=== PATIENT | male | born 1945 | race Caucasian/White ===

== ENCOUNTER → 2016-04-16 | Outpatient (CLI) | payer OTHER ==
[2016-01-01 14:52] VITALS: BP 115/70
[~2016-04-16] MED LIST: AMLO5TAB4 PO; ASPI325T11 PO; CITA10TA8 PO; CITA20TA5 PO; CLOP75TA PO; DOXA2TAB PO; FURO20TA3 PO; GABA-586 PO; HYDR10TA14 PO; INSU100I27 SQ; LEVO100T5 PO; METF500T4 PO; METO50TA2 PO; NPH,100V SQ; NPH,100V4 SQ; POTA20TA12 PO
--- NOTE | 2016-04-16 13:52 | KCIC ---
PROCEDURE Five view lumbar spine series Three view study of the sacroiliac joints HISTORY Acute midline low back pain without sciatica. Status post fall 2 days ago. FINDINGS Lumbar spine: No acute compression fracture or discitis or osteolytic process or anterolisthesis is seen. The transverse processes are intact. There is mild retrolisthesis from L1-2 thru L4-5. There is moderate degenerative disc space narrowing and mild degenerative endplate spurring throughout the lumbar spine and the lumbosacral junction. Degenerative facet arthropathy is seen throughout the lumbar spine. No radiolucent pars defect is seen. Sacroiliac joints: No fracture of the sacrum or coccyx is seen. No displacement is seen. No diastases of either SI joint or the symphysis pubis is seen. No erosive arthropathy or ankylosis of either SI joint is seen. There is mild degenerative subchondral sclerosis and spurring of both SI joints. There is mild degenerative spurring of both hip joints. 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 Mild to moderate degenerative lumbar spondylosis. No acute fracture. Electronically signed by: Chepe Boyle MD (Apr 16, 2016 13:50:13)
== END | disposition home or self-care (01) ==
LOC: KCIC 12:21
PROVIDERS: ATTEND Physician Assistant Medical
DX: M47.896 Other spondylosis, lumbar region (principal); M16.0 Bilateral primary osteoarthritis of hip
CPT/HCPCS: 72110; 72202

== ENCOUNTER → 2016-05-24 | Outpatient (CLI) | payer OTHER ==
[2016-01-01 14:52] VITALS: BP 115/70
[~2016-05-24] MED LIST changes: +HYDR-3074 PO; -HYDR10TA14 PO; +IOHEXOL 300 MG/ML 100ML VIAL. IV ONE
--- NOTE | 2016-05-24 11:52 | KCIC ---
CT head with and without contrast dated 05/24/2016 HISTORY Follow pituitary mass. Tunnel vision. TECHNIQUE Contiguous axial imaging of the head performed with and without the administration of 80 cc Omnipaque 300. Coronal and sagittal reconstructions obtained.Exposure: One or more of the following individualized dose reduction techniques were utilized for this exam: 1. Automated exposure control. 2. Adjustment of the mA and/or kV according to patient size. 3. Use of iterative reconstruction technique. COMPARISON 08/21/2015. FINDINGS Again noted is an enhancing mass filling the pituitary fossa with extension to the suprasellar cistern. The lesion measures 2.0 x 2.4 centimeter AP and transverse dimensions there is 1.9 x 2.3 centimeters previously. There is probable extension into the left cavernous sinus with remodeling of the adjacent bone that may have somewhat progressed from prior study. The lesion protrudes into the suprasellar cistern and appears to abut the optic chiasm, without significant chiasmatic displacement. No additional areas of abnormal enhancement or mass. Ventricles and sulci are stable. No midline shift or mass effect. Brain parenchyma is otherwise of normal attenuation. No hemorrhage or extra-axial collection posterior fossa and brainstem unremarkable. Visualized paranasal sinuses and mastoid air cells are clear. No acute calvarial abnormality. IMPRESSION - Enhancing pituitary mass appears to have slightly increased in size from prior exam, with possible further extension into the left cavernous sinus. There is also abutment of the optic chiasm. - Otherwise stable appearance of brain compared to if 08/20/2014. Electronically signed by: Chandan Dos Santos (May 24, 2016 11:50:16)
== END | disposition home or self-care (01) ==
LOC: KCIC CT 10:35
PROVIDERS: ATTEND Ophthalmology
DX: D35.2 Benign neoplasm of pituitary gland (principal); Z79.01 Long term (current) use of anticoagulants; I10 Essential (primary) hypertension; E11.9 Type 2 diabetes mellitus without complications; Z86.79 Personal history of other diseases of the circulatory system; Z95.0 Presence of cardiac pacemaker; Z95.5 Presence of coronary angioplasty implant and graft
CPT/HCPCS: 70470; 82565; Q9967

== ENCOUNTER 2016-10-29 10:35 | Inpatient (IN) | payer OTHER ==
[~2016-10-29] VITALS: Ht 170.2 cm; Wt 115.8 kg
[~2016-10-29 10:35] MED LIST changes: +AMLO5TAB2 PO; +ATOR10TA60 PO; +BUPR300T3 PO; +FURO40TA4 PO; -IOHEXOL 300 MG/ML 100ML VIAL. IV ONE; +LEVO150T5 PO; +MULT-208 PO; -NPH,100V4 SQ; +NPH,100V5 SQ; +POTA20TA4 PO; +VITA150T PO
--- NOTE | 2016-10-29 10:38 | PHYS DOC ---
Past Medical History Past Medical History: CAD, CHF, Diabetes-Type II, Hypertension, NV, Other Additional Past Medical Histor: PITUITARY TUMOR,NEUROPATHY, BRENDA'S Past Surgical History: Appendectomy, Coronary Bypass Surgery, Pacemaker Additional Past Surgical Histo: LEFT LEG STENTS IN PLACE, LAP BAND, PITUARY TUMOR REMOVED Alcohol Use: None Drug Use: None Adult General Chief Complaint Chief Complaint: CHEST PAIN [facility] HPI Patient is a 71 year old male who presents with chest pain with nausea. He states last night he had a couple twinges in his chest but they went away he was unable to eat his inner last night secondary to abdominal discomfort. This morning at 7 AM he was awoke with sharp substernal chest pain that was not radiating he felt nauseous with this and he became hot and then cold. He states his same pain he's had wheeze had heart attacks in the past. Currently his pain is a 2 out of 10. He did take nitroglycerin prior to arrival. He states he sees Dr. Wu and Dr. Neema Zazueta. He states he called Dr. Zazueta and informed him he was in the ER. Review of Systems Review of Systems Constitutional: Denies fever or chills [] Eyes: Denies change in visual acuity, redness, or eye pain [] HENT: Denies nasal congestion or sore throat [] Respiratory: Denies cough or shortness of breath [] Cardiovascular: No additional information not addressed in HPI [] GI: Denies abdominal pain, nausea, vomiting, bloody stools or diarrhea [] : Denies dysuria or hematuria [] Musculoskeletal: Denies back pain or joint pain [] Integument: Denies rash or skin lesions [] Neurologic: Denies headache, focal weakness or sensory changes [] Endocrine: Denies polyuria or polydipsia [] Current Medications Current Medications Current Medications Medications (Trade) Dose Ordered Sig/[facility] Start Time Stop Time Status Last Admin Dose Admin Aspirin (Children'S Aspirin) 324 mg 1X ONCE 10/29/16 10:45 10/29/16 10:46 DC 10/29/16 11:02 324 MG Enoxaparin Sodium (Lovenox 120mg Syringe) 110 mg Q12HR 10/29/16 12:00 Enoxaparin Sodium (Lovenox Per Pharmacy Treatment Dosing) 1 each PRN DAILY PRN 10/29/16 12:00 Nitroglycerin (Nitrostat) 0.4 mg PRN Q5MIN PRN 10/29/16 10:45 10/30/16 10:44 Allergies Allergies Allergies Coded Allergies Type Severity Reaction Last Updated Verified Sulfa (Sulfonamide Antibiotics) Allergy Intermediate N/V, RASH 10/29/16 Yes I S O L A T I O N *CONTACT* Allergy Unknown 08/12/15 Yes Physical Exam Physical Exam Constitutional: Well developed, well nourished, no acute distress, non-toxic appearance. [] HENT: Normocephalic, atraumatic, bilateral external ears normal, oropharynx moist, no oral exudates, nose normal. [] Eyes: PERRLA, EOMI, conjunctiva normal, no discharge. [] Neck: Normal range of motion, no tenderness, supple, no stridor. [] Cardiovascular:Heart rate regular rhythm, no murmur [] Lungs & Thorax: Bilateral breath sounds clear to auscultation [] Abdomen: Bowel sounds normal, soft, no tenderness, no masses, no pulsatile masses. [] Skin: Warm, dry, no erythema, no rash. [] Back: No tenderness, no CVA tenderness. [] Extremities: No tenderness, no cyanosis, no clubbing, ROM intact, no edema. [] Neurologic: Alert and oriented X 3, normal motor function, normal sensory function, no focal deficits noted. [] Psychologic: Affect normal, judgement normal, mood normal. [] Current Patient Data Vital Signs Vital Signs Date Time Temp Pulse Resp B/P (MAP) Pulse Ox O2 Delivery O2 Flow Rate FiO2 10/29/16 10:40 98.0 73 18 131/67 (88) 97 Room Air 98.0 Lab Values Laboratory Tests Test 10/29/16 10:50 White Blood Count 8.5 x10^3/uL (4.0-11.0) Red Blood Count 5.92 x10^6/uL (4.30-5.70) H Hemoglobin 15.6 g/dL (13.0-17.5) Hematocrit 47.2 % (39.0-53.0) Mean Corpuscular Volume 80 fL (79-100) Mean Corpuscular Hemoglobin 26 pg (25-35) Mean Corpuscular Hemoglobin Concent 33 g/dL (31-37) Red Cell Distribution Width 15.7 % (11.5-14.5) H Platelet Count 229 x10^3/uL (140-400) Neutrophils (%) (Auto) 69 % (31-73) Lymphocytes (%) (Auto) 16 % (24-48) L Monocytes (%) (Auto) 11 % (0-9) H Eosinophils (%) (Auto) 3 % (0-3) Basophils (%) (Auto) 1 % (0-3) Neutrophils # (Auto) 5.9 x10^3uL (1.8-7.7) Lymphocytes # (Auto) 1.4 x10^3/uL (1.0-4.8) Monocytes # (Auto) 0.9 x10^3/uL (0.0-1.1) Eosinophils # (Auto) 0.3 x10^3/uL (0.0-0.7) Basophils # (Auto) 0.1 x10^3/uL (0.0-0.2) Sodium Level 136 mmol/L (136-145) Potassium Level 4.3 mmol/L (3.5-5.1) Chloride Level 100 mmol/L (98-107) Carbon Dioxide Level 29 mmol/L (21-32) Anion Gap 7 (6-14) Blood Urea Nitrogen 22 mg/dL (8-26) Creatinine 1.2 mg/dL (0.7-1.3) Estimated GFR (Cockcroft-Gault) 59.9 Glucose Level 146 mg/dL (70-99) H Calcium Level 8.9 mg/dL (8.5-10.1) Magnesium Level 2.0 mg/dL (1.8-2.4) Total Bilirubin 0.6 mg/dL (0.2-1.0) Direct Bilirubin 0.1 mg/dL (0.0-0.2) Aspartate Amino Transferase (AST) 24 U/L (15-37) Alanine Aminotransferase (ALT) 24 U/L (16-63) Alkaline Phosphatase 46 U/L (46-116) Creatine Kinase 167 U/L (39-308) Creatine Kinase MB (Mass) 9.0 ng/mL (0.0-3.6) H Creatine Kinase MB Relative Index 5.4 % (0-4) H Troponin I Quantitative 0.029 ng/mL (0.000-0.055) IN-Mzm-Y-Type Natriuretic Peptide 103 pg/mL (0-124) Total Protein 7.4 g/dL (6.4-8.2) Albumin 3.5 g/dL (3.4-5.0) Lipase 163 U/L (73-393) Thyroid Stimulating Hormone (TSH) 0.050 uIU/mL (0.358-3.74) L Laboratory Tests 10/29/16 10:50 Laboratory Tests 10/29/16 10:50 EKG EKG EKG shows sinus rhythm with rate of [address] elevations, T-wave inversion noted in leads aVL, left axis deviation noted, QTC 404 ms, as interpreted by me. Radiology/Procedures Radiology/Procedures [facility] [address] [place] [address] IMAGING REPORT Signed PATIENT: LINDA DAVID ACCOUNT: [id number] : 1945 LOCATION: ER AGE: 71 SEX: M EXAM STATUS: PRE ER ORD. PHYSICIAN: NATHANIEL RAM MD REASON: chest pain PROCEDURE: PORTABLE CHEST 1V Examination: Single frontal view of the chest. History: History of intermittent chest pain Comparison: 09/15/2016 Findings: The cardiomediastinal size grossly appears unremarkable. Left-sided cardiac pacer is unchanged. Median sternotomy wires are identified. There is no acute infiltrate or visualized pneumothorax. Minimal elevation right hemidiaphragm similar to prior exam. Impression: No acute cardiopulmonary findings. DICTATED and SIGNED BY: MILY CARMONA MD DATE: 10/29/16 1102 CC: NATHANIEL RAM MD; NEEMA ZAZUETA MD ~ Impressions: Chest pain Course & Med Decision Making Course & Med Decision Making Pertinent Labs and Imaging studies reviewed. (See chart for details) EKG, chest x-ray nonacute. Spoke with Dr. Wu regarding his ongoing chest discomfort in addition to labs and will start Lovenox. Patient's agreeable plan being admitted to Dr. Neema Zazueta this time with interim orders written. Dragon Disclaimer Dragon Disclaimer This electronic medical record was generated, in whole or in part, using a voice recognition dictation system. Departure Departure Impression: Primary Impression: Chest pain Disposition: ADMITTED INPATIENT Admitting Physician: Neema Zazueta Condition: STABLE Referrals: NEEMA ZAZUETA MD (PCP) Problem Qualifiers Primary Impression: Chest pain Chest pain type: unspecified Qualified Codes: R07.9 - Chest pain, unspecified NATHANIEL RAM MD Oct 29, 2016 10:38
[2016-10-29] MEDS ORDERED: ASPIRIN CHEWABLE 81 MG TABLET. PO ONE (10:45)
[2016-10-29] MEDS ORDERED: NITROGLYCERIN SUBLINGUAL 0.4 MG BOTTLE OF 25. SL PRN ×2 (10:45→12:30)
--- NOTE | 2016-10-29 11:06 | RAD ---
Examination: Single frontal view of the chest. History: History of intermittent chest pain Comparison: 09/15/2016 Findings: The cardiomediastinal size grossly appears unremarkable. Left-sided cardiac pacer is unchanged. Median sternotomy wires are identified. There is no acute infiltrate or visualized pneumothorax. Minimal elevation right hemidiaphragm similar to prior exam. Impression: No acute cardiopulmonary findings.
[2016-10-29 11:16] LABS: CALCIUM 8.9 mg/dL (8.5-10.1); CREATININE 1.2 mg/dL (0.7-1.3); GFR 59.9; POTASSIUM 4.3 mmol/L (3.5-5.1)
[2016-10-29 11:22] LABS: ALBUMIN 3.5 g/dL (3.4-5.0); DIRECT BILIRUBIN 0.1 mg/dL (0.0-0.2); TOTAL BILIRUBIN 0.6 mg/dL (0.2-1.0); TOTAL PROTEIN 7.4 g/dL (6.4-8.2)
[2016-10-29 11:29] LABS: BASO # 0.1 x10^3/uL (0.0-0.2); BASO % 1 % (0-3); EOS % 3 % (0-3); HEMATOCRIT 47.2 % (39.0-53.0); HEMOGLOBIN 15.6 g/dL (13.0-17.5); LYMPH # 1.4 x10^3/uL (1.0-4.8); LYMPH % 16 % (24-48); MEAN CORPUSCULAR HEMOGLOBIN 26 pg (25-35); MEAN CORPUSCULAR HGB CONC 33 g/dL (31-37); MEAN CORPUSCULAR VOLUME 80 fL (79-100); MONO % 11 % (0-9); NEUT % 69 % (31-73); PLATELET COUNT 229 x10^3/uL (140-400); RED BLOOD COUNT 5.92 x10^6/uL (4.30-5.70); RED CELL DISTRIBUTION WIDTH 15.7 % (11.5-14.5); WHITE BLOOD COUNT 8.5 x10^3/uL (4.0-11.0)
[2016-10-29] MEDS ORDERED: MORPHINE SULFATE 2 MG/ML DISP.SYRIN. IV PRN (12:30)
[2016-10-29] MEDS ORDERED: ONDANSETRON PF 4 MG/2 ML VIAL. IV PRN (12:30)
[2016-10-29 13:15] VITALS: BP 113/74
--- NOTE | 2016-10-29 14:00 | ACF ---
Admit Criteria Forms Admit Criteria Forms Admit Criteria Forms CARDIOLOGY GRG Clinical Indications for Admission to Inpatient Care ( [place]/check or initial the applicable condition/criteria) Hospital admission is needed for appropriate care of the patient because of ANY ONE of the following: [ ] I. Hemodynamic instability as indicated by ALL of the following (1)(2)(3) (4)(5)(6)(7)(8)(9)(10) [ ]a) Vital sign abnormality not readily corrected by appropriate treatment with 12-24 hours for ANY ONE: [ ]i) Hypotension that persists despite appropriate treatment (eg, volume repletion) [ ]ii) Tachycardiathat persists despite appropriate tx ( e.g., analgesia, fluids, sedation as indicated [ ]iii) Orthostatic vital sign changes that persists despite appropriate treatment (eg, volume repletion) [ ]b) Vital sign abnormailty that is severe indicated by ANY ONE of the following: [ ]i) Inadequate perfusion indicated by ANY ONE of the following: [ ] 1) Lactic acidosis (> 2 mmol/L) [ ] 2) New abnormal capillary refill (> 3 seconds) [ ] 3) Reduced urine output [ ] 4) New altered mental status [ ] 5) Myocardial Ischemia [ ] 6) Other metabolic acidosis (arterial pH <7.35 ) not otherwise explained. [ ]ii) Mean arterial pressure[A] less than 60 mm Hg [ ]iii) Mean arterial pressure[A] less than 70 mm Hg after 30 minutes of appropriate treatment (eg, fluid resuscitation) [ ]iv) Sustained heart rate greater than 120 beats per minute in adult or child 6 years or older[B] [ ]v) IV inotropic or vasopressor medication required to maintain adequate blood pressure or perfusion [ ] II. Severe heart failure as indicated by ANY ONE of the following(17)(18) [ ]a) Respiratory distress [ ]b) Hypotension [ ]c) Debilitating anasarca refractory to therapy (eg, tissue breakdown with infection)[C](19) [ ]d) Cardiac arrhythmias of immediate concern [ ]e) Myocardial ischemia [ ] III. Cardiac arrhythmias or findings of immediate concern indicated by ANY ONE of the following (21)(22): [ ] a) Heart rhythms that are inherently dangerous or unstable indicated by ANY ONE of the following (23)(24)(25): [ ] i) Resuscitated ventricular fibrillation or cardiac arrest [ ] ii) Ventricular escape rhythm [ ] iii) Sustained ventricular tachycardia (30 seconds or more of ventricular rhythm at greater than 100 beats per minute) [ ] iv) Nonsustained ventricular tachycardia and ANY ONE of the following: [ ] 1) Suspected cardiac ischemia as cause or consequence of ventricular tachycardia [ ] 2) Acute myocarditis [ ] b) Unstable cardiac conduction defects indicated by ANY ONE of the following(25)(26)(27) [ ] i) Type II second-degree atrioventricular block [ ]ii) Third-degree atrioventricular block [ ]iii) New-onset left bundle branch block with suspected myocardial ischemia [ ]c) Any heart rhythm and ANY ONE of the following (23)(24)(28)(29) (30) [ ] i) Continuous long-term ECG monitoring needed (e.g., initiation of drug requiring monitoring for more than 24 hours) [ ] ii) Patient has automatic implanted cardioverter defibrillator that is repeatedly firing, malfunctioning, or in need of immediate adjustment of settings beyond the scope of ambulatory or observation care [ ]d) Heart rhythms of concern due to ANY ONE of the following: [ ] i) Hypotension [ ] ii) Respiratory distress [ ] iii) Association with other significant symptoms (e.g., bradycardia with syncope or ongoing dizziness, supraventricular tachycardia with chest pain (28)(29)(31) [ ] IV. Monitoring for cardiac contusion beyond the scope of observation care needed [A](32)(33)(34) [ ] V. Surgical or device complication (e.g., valve replacement complication , ICD disfunction or pacemaker dysfunction) (49)(50)(51)(52)(53)(54) [ ] . Inpatient palliative care needed. [F](51)(52) Also use Inpatient Palliative Care Criteria [ ] VII. Nonbacterial thrombotic (marantic) endocarditis(43)(44)(55)(56)(57) [X] VIII. Cardiology condition, symptom, or finding for which emergency and observation care has failed or are not considered appropriate. [ ] IX. Acute valvular disease requiring inpatient as indicated by ANY ONE of the following (40)(41) [ ]a) Acute valvular regurgitation (42) [ ]b) Noninfectious valvulitis (43)(44) [ ]c) Obstructive valve thrombosis (45)(46) [ ]d) Paravalvular leak(47)(48) [ ]e) Other significant valvular disorder remaining after emergency or observation level of care (as appropriate) [ ]X. Pericardial disease requiring inpatient treatment as indicated by ANY ONE of the following (35)(36)(37)(38) [ ]a) Suspected tamponade [ ]b) Hemopericardium [ ]c) Other significant pericardial disorder remaining after emergency or observation level of care (as appropriate)(39) [ ] XI. Cardiac ischemia beyond scope of emergency and observation care. [ ] XII. Cyanotic heart disease requiring inpatient care as indicated by 1 or more of the following(58)(59)(60): [ ]a) Acute onset of hypoxemia [ ]b) Exacerbation [ ] XIII. Hypertension requiring inpatient treatment as indicated by ANYONE of the following(11)(12)(13)(14): [ ]a) Severe hypertension (SBP greater than 180 mm Hg or DBP greater than 110 mm Hg, or greater than the 95th percentile for age, gender, and height in pediatric patients) that cannot be controlled (eg, to SBP less than 160 mm Hg and DBP less than 100 mm Hg) by emergency department or observation care treatment(15) [ ]b) Acute end organ damage secondary to hypertension (SBP greater than 140 mm Hg or DBP greater than 90 mm Hg) as indicated by ANYONE of the following: [ ] i) Hypertensive encephalopathy (eg, Altered mental status)(16) [ ] ii) Cerebral infarction [ ] iii) Intracranial hemorrhage [ ] iv) Myocardial ischemia or infarction [ ] v) Heart failure (eg, pulmonary edema) [ ] vi) Aortic dissection [ ] vii) Increased creatinine (new) with reduction of more than 50% in estimated glomerular filtration rate from baseline [ ] viii) Papilledema [ ] ix) Retinal hemorrhage [ ] x) Microangiopathic hemolytic anemia [ ] xi) Seizure [ ] xii) Other significant finding secondary to hypertension [ ] XIV. Complications of transplanted heart indicated by ANY ONE of the following(61): [ ]a) Acute graft rejection requiring inpatient management (eg, intravenous imunosuppression)(62)(63) [ ]b) Acute graft heart failure indicated by ANY ONE of the following(64): [ ] i) Hemodynamic instability [ ] ii) Cardiac arrhythmias of immediate concern [ ] iii) Pulmonary edema that is very severe (eg, mechanical ventilation needed, imminent or likely, need for 100% oxygen to keep oxygen saturation above 90%) [ ] iv) Pulmonary edema that is persistent as indicated by ALL of the following: [ ] 1) New need for oxygen therapy to keep oxygen saturation above 90 % (or increased FiO2 need from baseline) [ ] 2) Has not improved sufficiently with emergency department or observation care IV diuretics or other heart failure treatments[E]. [ ] iv) Altered mental status that is severe or persistent [ ] iv) Increased creatinine (new on laboratory test) with reduction of more than 50% in estimated glomerular filtration rate from baseline [ ] iv) Progressively (ongoing) rising creatinine (known from past laboratory test) with reduction of more than 25% in estimated glomerular filtration rate from baseline [ ] iv) Acute renal failure [ ] iv) Acute peripheral ischemia (eg, examination shows pulseless, cool, mottled, or cyanotic extremity) [ ] iv) Pulmonary artery catheter monitoring needed [ ] iv) Other sign or symptom of heart failure requiring inpatient treatment (ie, too severe or not responsive to outpatient and observation care treatment) [ ]c) Infection requiring inpatient management (eg, Hemodynamic instability, need for intravenous antimicrobial treatment)(66)(67)(68)(69)(70) [ ]d) Cardiac allograft vasculopathy requiring inpatient management (eg evidence of cardiacischemia)(71) [ ]e) Other complication of transplanted heart (eg, stroke, severe pulmonary hypertension, severe valvular dysfunction) requiring inpatient management(72) The original [employer] content created by [employer] has been revised. The portions of the content which have been revised are identified through the use of italic text, and [facility] [employer] has neither reviewed nor approved the modified material. All other unmodified content is copyright [employer]. Please see references footnoted in the original [employer] edition 2014 MANA ELLISON Oct 29, 2016 14:00
[2016-10-29] MEDS ORDERED: ASPI325T8 PO (14:04)
[2016-10-29] MEDS ORDERED: CLOP75TA PO (14:04)
[2016-10-29] MEDS ORDERED: METO50TA2 PO (14:04)
[2016-10-29] MEDS ORDERED: ATOR10TA60 PO (14:04)
[2016-10-29] MEDS ORDERED: POTA20TA82 PO (14:04)
[2016-10-29] MEDS ORDERED: ACET500C4 PO (14:04)
[2016-10-29] MEDS ORDERED: VITA150T PO (14:04)
[2016-10-29] MEDS ORDERED: FURO-68 PO (14:04)
[2016-10-29] MEDS ORDERED: OMEG1CAP28 PO (14:04)
[2016-10-29] MEDS ORDERED: AMLO5TAB2 PO (14:04)
[2016-10-29] MEDS ORDERED: COCO1000 PO (14:04)
[2016-10-29] MEDS ORDERED: LEVO150T5 PO (14:04)
[2016-10-29] MEDS ORDERED: ASTA4CAP PO (14:04)
[2016-10-29] MEDS ORDERED: FOLI200T11 PO (14:04)
[2016-10-29] MEDS ORDERED: BUPR100T11 PO (14:04)
[2016-10-29] MEDS ORDERED: HUM100VI4 SQ (14:04)
[2016-10-29] MEDS ORDERED: CHOL200044 PO (14:04)
[2016-10-29] MEDS ORDERED: UBID100C26 PO (14:04)
[2016-10-29] MEDS ORDERED: [UNRECOGNIZED DRUG - CODE] PO (14:04)
--- NOTE | 2016-10-29 14:11 | EKG ---
[facility] [address] [place] [address] Test Date: 2016-10-29 Test Time: 10:44:35 Pat Name: LINDA DAVID Department: Room: 263 1 Gender: M Spread Cutter: : 1945 Requested By: NATHANIEL RAM Order Number: [id number] Reading MD: Mateus Conde Measurements Intervals [place] Rate: 62 P: 24 TX: 196 QRS: -5 QRSD: 108 T: 94 QT: 396 QTc: 404 Interpretive Statements SINUS RHYTHM Electronically Signed On 11-01-2016 11:20:29 CDT by Mateus Conde
[2016-10-29] MEDS ORDERED: DEXTROSE 50% 25 GM / 50ML DISP.SYRIN. IV PRN (14:30)
[2016-10-29 15:00] VITALS: BP 116/74
--- NOTE | 2016-10-29 16:16 | PDOC2 ---
CONSULT Date of Consult Date of Consult DATE: 10/29/16 TIME: 16:06 Reason for Consult Reason for Consult: Chest Pain Referring Physician Referring Physician: Dr Driscoll Identification/Chief Complaint Chief Complaint Chest Pain Problems: History of Present Illness Reason for Visit: Pt is a pleasant 71 y o gentleman that has a known Hx of CAD and previous MS's. He had an episode of R parasternal chest pain yesterday that was relieved spontaneously and then he went to sleep and the pain woke him up, it was partially relieved by NTG for a while and then he eventually decided to come to the ER because it was similar to the pains that he had with his MS's. After arrival in the ER the enzymes were normal and there was no acute changes in the EKG as reported by the ER physician. At the time that I examined the pt he denies any chest pains and feels fine, no dyspnea, no palpitations, no complaints. Past Medical History Cardiovascular: CAD, HTN, [place] Pulmonary: COPD, Other CENTRAL NERVOUS SYSTEM: Other Psych: Anxiety, Depression Musculoskeletal: Osteoarthritis Rheumatologic: Gout Endocrine: Diabetes, Hypothyroidism Past Surgical History Past Surgical History: Pacemaker, Appendectomy, CABG, Other Current Problem List Problem List Problems Medical Problems: (1) Chest pain Status: Acute Current Medications Current Medications Current Medications Aspirin (Children'S Aspirin) 324 mg 1X ONCE PO Last administered on 10/29/16 11:02; Start 10/29/16 at 10:45; Stop 10/29/16 at 10:46; Status DC Nitroglycerin (Nitrostat) 0.4 mg PRN Q5MIN PRN SL CP RATING > 1/10; Start 10/29 at 10:45; Stop 10/30/16 at 10:44 Enoxaparin Sodium (Lovenox Per Pharmacy Treatment Dosing) 1 each PRN DAILY PRN MC SEE COMMENTS; Start 10/29/16 at 12:00 Enoxaparin Sodium (Lovenox 120mg Syringe) 110 mg Q12HR SQ Last administered on 10/29/16 12:36; Start 10/29/16 at 12:00 Ondansetron HCl (Zofran) 4 mg PRN Q8HRS PRN IV NAUSEA/VOMITING; Start 10/29/16 at 12:30; Stop 10/30/16 at 12:29 Morphine Sulfate 2 mg PRN Q2HR PRN IV PAIN; Start 10/29/16 at 12:30; Stop 10/30 at 12:29 Nitroglycerin (Nitrostat) 0.4 mg PRN Q5MIN PRN SL CHEST PAIN; Start 10/29/16 at 12:30; Stop 10/30/16 at 12:29 Dextrose (Dextrose 50%-Water Syringe) 12.5 gm PRN Q15MIN PRN IV SEE COMMENTS; Start 10/29/16 at 14:30 Active Scripts Active Reported Msm (Methylsulfonylmethane) 1,000 Mg Capsule 1,000 Mg PO DAILY Coconut Oil 1,000 Mg Capsule 1,000 Mg PO DAILY D3-2000 (Cholecalciferol (Vitamin D3)) 2,000 Unit Capsule 2,000 Unit PO DAILY Coq-10 (Ubidecarenone) 100 Mg Capsule 100 Mg PO DAILY Super B Complex (Vitamin B Complex & Vit C No.4) 150 Mg Tablet 150 Mg PO DAILY Adult Multivitamin Gummies (Folic Acid/Multivits-Min) 200 Mcg Tab.chew 200 Mcg PO DAILY Fish Oil 1,200 Mg Softgel ([place]-3 Fatty Acids/Fish Oil) 1 Each Capsule 1 Each PO DAILY Aspirin 325 Mg Tablet 1 Tab PO DAILY Clopidogrel (Clopidogrel Bisulfate) 75 Mg Tablet 1 Tab PO DAILY Bupropion Hcl 100 Mg Tablet 300 Mg PO DAILY Atorvastatin Calcium 10 Mg Tablet 1 Tab PO DAILY Lasix (Furosemide) 40 Mg Tablet 1 Tab PO DAILY Potassium Chloride 20 Meq Tablet.er 20 Meq PO BID Metoprolol Tartrate 50 Mg Tablet 1 Tab PO BID Amlodipine Besylate 5 Mg Tablet 5 Mg PO DAILY Levothyroxine Sodium 150 Mcg Tablet 1 Tab PO DAILY Relion Novolin 70-30 Vial (Hum Insulin Nph/Reg Insulin Hm) 100 Unit/1 Ml Vial 40 Unit SQ BID Tylophen (Acetaminophen) 500 Mg Capsule 500 Mg PO PRN Q4-6HRS PRN Astaxanthin 4 Mg Capsule 12 Mg PO DAILY Allergies Allergies: Coded Allergies: Sulfa (Sulfonamide Antibiotics) (Verified Allergy, Intermediate, N/V, RASH , 10/29/16) I S O L A T I O N *CONTACT* (Verified Allergy, Unknown, 08/12/15) mrsa screen + Physical Exam General: Alert, Oriented X3, Cooperative HEENT: Atraumatic, PERRLA Lungs: Clear to auscultation Heart: Regular rate, Normal S1, Normal S2 Abdomen: Normal bowel sounds, Soft Extremities: No edema Psych/Mental Status: Mental status NL Vitals VITALS Vital Signs Date Time Temp Pulse Resp B/P (MAP) Pulse Ox O2 Delivery O2 Flow Rate FiO2 10/29/16 14:19 Room Air 10/29/16 13:15 98.4 63 16 113/74 (87) 99 98.4 Labs Labs Laboratory Tests Test 10/29/16 10:50 10/29/16 13:30 White Blood Count 8.5 x10^3/uL (4.0-11.0) Red Blood Count 5.92 x10^6/uL (4.30-5.70) Hemoglobin 15.6 g/dL (13.0-17.5) Hematocrit 47.2 % (39.0-53.0) Mean Corpuscular Volume 80 fL (79-100) Mean Corpuscular Hemoglobin 26 pg (25-35) Mean Corpuscular Hemoglobin Concent 33 g/dL (31-37) Red Cell Distribution Width 15.7 % (11.5-14.5) Platelet Count 229 x10^3/uL (140-400) Neutrophils (%) (Auto) 69 % (31-73) Lymphocytes (%) (Auto) 16 % (24-48) Monocytes (%) (Auto) 11 % (0-9) Eosinophils (%) (Auto) 3 % (0-3) Basophils (%) (Auto) 1 % (0-3) Neutrophils # (Auto) 5.9 x10^3uL (1.8-7.7) Lymphocytes # (Auto) 1.4 x10^3/uL (1.0-4.8) Monocytes # (Auto) 0.9 x10^3/uL (0.0-1.1) Eosinophils # (Auto) 0.3 x10^3/uL (0.0-0.7) Basophils # (Auto) 0.1 x10^3/uL (0.0-0.2) Sodium Level 136 mmol/L (136-145) Potassium Level 4.3 mmol/L (3.5-5.1) Chloride Level 100 mmol/L (98-107) Carbon Dioxide Level 29 mmol/L (21-32) Anion Gap 7 (6-14) Blood Urea Nitrogen 22 mg/dL (8-26) Creatinine 1.2 mg/dL (0.7-1.3) Estimated GFR (Cockcroft-Gault) 59.9 Glucose Level 146 mg/dL (70-99) Calcium Level 8.9 mg/dL (8.5-10.1) Magnesium Level 2.0 mg/dL (1.8-2.4) Total Bilirubin 0.6 mg/dL (0.2-1.0) Direct Bilirubin 0.1 mg/dL (0.0-0.2) Aspartate Amino Transf (AST/SGOT) 24 U/L (15-37) Alanine Aminotransferase (ALT/SGPT) 24 U/L (16-63) Alkaline Phosphatase 46 U/L (46-116) Creatine Kinase 167 U/L (39-308) Creatine Kinase MB (Mass) 9.0 ng/mL (0.0-3.6) Creatine Kinase MB Relative Index 5.4 % (0-4) Troponin I Quantitative 0.029 ng/mL (0.000-0.055) 0.026 ng/mL (0.000-0.055) BU-Lfd-S-Type Natriuretic Peptide 103 pg/mL (0-124) Total Protein 7.4 g/dL (6.4-8.2) Albumin 3.5 g/dL (3.4-5.0) Lipase 163 U/L (73-393) Thyroid Stimulating Hormone (TSH) 0.050 uIU/mL (0.358-3.74) Laboratory Tests Test 10/29/16 10:50 10/29/16 13:30 White Blood Count 8.5 x10^3/uL (4.0-11.0) Red Blood Count 5.92 x10^6/uL (4.30-5.70) Hemoglobin 15.6 g/dL (13.0-17.5) Hematocrit 47.2 % (39.0-53.0) Mean Corpuscular Volume 80 fL (79-100) Mean Corpuscular Hemoglobin 26 pg (25-35) Mean Corpuscular Hemoglobin Concent 33 g/dL (31-37) Red Cell Distribution Width 15.7 % (11.5-14.5) Platelet Count 229 x10^3/uL (140-400) Neutrophils (%) (Auto) 69 % (31-73) Lymphocytes (%) (Auto) 16 % (24-48) Monocytes (%) (Auto) 11 % (0-9) Eosinophils (%) (Auto) 3 % (0-3) Basophils (%) (Auto) 1 % (0-3) Neutrophils # (Auto) 5.9 x10^3uL (1.8-7.7) Lymphocytes # (Auto) 1.4 x10^3/uL (1.0-4.8) Monocytes # (Auto) 0.9 x10^3/uL (0.0-1.1) Eosinophils # (Auto) 0.3 x10^3/uL (0.0-0.7) Basophils # (Auto) 0.1 x10^3/uL (0.0-0.2) Sodium Level 136 mmol/L (136-145) Potassium Level 4.3 mmol/L (3.5-5.1) Chloride Level 100 mmol/L (98-107) Carbon Dioxide Level 29 mmol/L (21-32) Anion Gap 7 (6-14) Blood Urea Nitrogen 22 mg/dL (8-26) Creatinine 1.2 mg/dL (0.7-1.3) Estimated GFR (Cockcroft-Gault) 59.9 Glucose Level 146 mg/dL (70-99) Calcium Level 8.9 mg/dL (8.5-10.1) Magnesium Level 2.0 mg/dL (1.8-2.4) Total Bilirubin 0.6 mg/dL (0.2-1.0) Direct Bilirubin 0.1 mg/dL (0.0-0.2) Aspartate Amino Transf (AST/SGOT) 24 U/L (15-37) Alanine Aminotransferase (ALT/SGPT) 24 U/L (16-63) Alkaline Phosphatase 46 U/L (46-116) Creatine Kinase 167 U/L (39-308) Creatine Kinase MB (Mass) 9.0 ng/mL (0.0-3.6) Creatine Kinase MB Relative Index 5.4 % (0-4) Troponin I Quantitative 0.029 ng/mL (0.000-0.055) 0.026 ng/mL (0.000-0.055) VJ-Zna-C-Type Natriuretic Peptide 103 pg/mL (0-124) Total Protein 7.4 g/dL (6.4-8.2) Albumin 3.5 g/dL (3.4-5.0) Lipase 163 U/L (73-393) Thyroid Stimulating Hormone (TSH) 0.050 uIU/mL (0.358-3.74) Assessment/Plan Assessment/Plan This pt with a Hx of CAD, pacer, CABGS came in with chest pains. Will check serial enzymes/EKG's and do a stress MPI in AM. Thank you for asking me to participate in the care of this pt. MANUEL MIKE MD Oct 29, 2016 16:16
[2016-10-29] MEDS ORDERED: ACETAMINOPHEN 500 MG TABLET PO PRN (17:15)
[2016-10-29] MEDS ORDERED: INSU100I11 SQ (17:50)
[2016-10-29] MEDS: VITAMIN B COMPLEX TABLET. PO SCH (18:00)
[2016-10-29] MEDS: POTASSIUM CHLORIDE 20 MEQ TABLET.ER. PO SCH (18:00)
[2016-10-29] MEDS: OMEGA-3 FATTY ACIDS/FISH OIL 1,000 MG CAPSULE. PO SCH (18:00)
[2016-10-29] MEDS: INSULIN ASPART 300 UNITS/3 ML INSULN.PEN SQ SCH (18:11)
[2016-10-29 18:48] VITALS: BP 143/98
[2016-10-29] MEDS ORDERED: HYDR-3074 PO (19:58)
[2016-10-29 20:50] LABS: BILIRUBIN,URINE NEGATIVE (NEG); GLUCOSE,URINE NEGATIVE (NEG); NITRITE,URINE NEGATIVE (NEG); PH,URINE 5.5; PROTEIN,URINE NEGATIVE (NEG-TRACE); UROBILINOGEN,URINE 0.2 mg/dL (0.2 mg/dL)
[2016-10-29 21:02] LABS: BACTERIA,URINE 0 /HPF (0-FEW); SQUAMOUS EPITHELIAL CELL,UR FEW /LPF
[2016-10-29] MEDS: HYDROCORTISONE 10 MG TABLET PO SCH (21:14)
[2016-10-29] MEDS: METOPROLOL TART IMMED RELEASE 50 MG TABLET. PO SCH (21:18)
[2016-10-29] MEDS: INSULIN DETEMIR 300 UNITS/3 ML INSULN.PEN. SQ SCH (22:07)
[2016-10-29 23:23] VITALS: BP 146/63
[2016-10-30 03:20] VITALS: BP 160/69
[2016-10-30 05:22] LABS: BASO # 0.1 x10^3/uL (0.0-0.2); BASO % 1 % (0-3); EOS % 3 % (0-3); HEMATOCRIT 44.8 % (39.0-53.0); HEMOGLOBIN 15.1 g/dL (13.0-17.5); LYMPH # 1.8 x10^3/uL (1.0-4.8); LYMPH % 25 % (24-48); MEAN CORPUSCULAR HEMOGLOBIN 27 pg (25-35); MEAN CORPUSCULAR HGB CONC 34 g/dL (31-37); MEAN CORPUSCULAR VOLUME 80 fL (79-100); MONO % 13 % (0-9); NEUT % 58 % (31-73); PLATELET COUNT 222 x10^3/uL (140-400); RED BLOOD COUNT 5.59 x10^6/uL (4.30-5.70); RED CELL DISTRIBUTION WIDTH 16.2 % (11.5-14.5); WHITE BLOOD COUNT 7.1 x10^3/uL (4.0-11.0)
[2016-10-30 06:10] LABS: CALCIUM 8.8 mg/dL (8.5-10.1); GFR 73.9; POTASSIUM 3.8 mmol/L (3.5-5.1)
[2016-10-30] MEDS: LEVOTHYROXINE 150 MCG TABLET PO SCH (06:27)
[2016-10-30 07:00] VITALS: BP 141/78
[2016-10-30] MEDS: INSULIN ASPART 300 UNITS/3 ML INSULN.PEN SQ SCH ×3 (07:30→16:30)
[2016-10-30] MEDS: amLODIPine BESYLATE 5 MG TABLET PO SCH (07:58)
--- NOTE | 2016-10-30 08:46 | PDOC1 ---
History and Physical Date of Admission Date of Admission 10/30/16 Identification/Chief Complaint Chief Complaint chest pain Problems: Source Source: Chart review, Patient History of Present Illness History of Present Illness Patient is a 71 year old male who presents with chest pain with nausea. He states last night he had a couple twinges in his chest but they went away he was unable to eat his dinner last night secondary to abdominal discomfort. The morning of presentation at 7 AM he was awoke with sharp substernal chest pain that was not radiating he felt nauseous with this and he became hot and then cold. He states his same pain he's had when had heart attacks in the past. He did take nitroglycerin prior to arrival to ER and that helped. today he is walking in [place] feels ok denies any pain Past Medical History Cardiovascular: CAD, HTN, [place] Pulmonary: COPD, Other CENTRAL NERVOUS SYSTEM: Other Psych: Anxiety, Depression Rheumatologic: Gout Endocrine: Diabetes, Hypothyroidism Past Surgical History Past Surgical History: Pacemaker, Appendectomy, CABG, Other Family History Family History: Hypertension Social History Smoke: Quit ALCOHOL: rare Drugs: None Current Problem List Problem List Problems Medical Problems: (1) Chest pain Status: Acute Current Medications Current Medications Current Medications Medications (Trade) Dose Ordered Sig/Keo Start Time Stop Time Status Last Admin Dose Admin Acetaminophen (Tylenol) 500 mg PRN Q6HRS PRN 10/29/16 17:15 Amlodipine Besylate (Norvasc) 5 mg DAILY 10/30/16 09:00 10/30/16 07:58 5 MG Aspirin (David Aspirin) 325 mg DAILY 10/30/16 09:00 Aspirin (Children'S Aspirin) 324 mg 1X ONCE 10/29/16 10:45 10/29/16 10:46 DC 10/29/16 11:02 324 MG Atorvastatin Calcium (Lipitor) 10 mg DAILY 10/30/16 09:00 Bupropion HCl (Wellbutrin) 300 mg DAILY 10/30/16 09:00 Cancel Clopidogrel Bisulfate (Plavix) 75 mg DAILY 10/30/16 09:00 Dextrose (Dextrose 50%-Water Syringe) 12.5 gm PRN Q15MIN PRN 10/29/16 14:30 Enoxaparin Sodium (Lovenox 120mg Syringe) 110 mg Q12HR 10/29/16 12:00 10/29/16 21:20 110 MG Enoxaparin Sodium (Lovenox Per Pharmacy Treatment Dosing) 1 each PRN DAILY PRN 10/29/16 12:00 Fish Oil (Fish Oil) 1,000 mg DAILY 10/29/16 18:00 Furosemide (Lasix) 40 mg DAILY 10/30/16 09:00 Hydrocortisone (Cortef) 10 mg BID92 10/29/16 21:00 10/29/16 21:14 10 MG Insulin Aspart (NovoLOG) 20 units TIDAC 10/29/16 18:00 10/29/16 18:11 20 UNITS Insulin Detemir (Levemir) 40 units BID 10/29/16 21:00 10/29/16 22:07 30 UNITS Levothyroxine Sodium (Synthroid) 150 mcg DAILY06 10/30/16 06:00 10/30/16 06:27 150 MCG Metoprolol Tartrate (Lopressor) 50 mg BID 10/29/16 21:00 10/29/16 21:18 50 MG Morphine Sulfate 2 mg PRN Q2HR PRN 10/29/16 12:30 10/30/16 12:29 Multivitamins (Thera M Plus) 1 tab DAILY 10/30/16 09:00 Nitroglycerin (Nitrostat) 0.4 mg PRN Q5MIN PRN 10/29/16 12:30 10/30/16 12:29 Cancel Non-Formulary Medication 100 mg DAILY 10/30/16 09:00 UNV Ondansetron HCl (Zofran) 4 mg PRN Q8HRS PRN 10/29/16 12:30 10/30/16 12:29 Potassium Chloride (Klor-Con) 20 meq BIDWMEALS 10/29/16 18:00 Vitamin B Complex (Javier B) 1 tab DAILY 10/29/16 18:00 Vitamin D (Vitamin D3) 2,000 unit DAILY 10/30/16 09:00 Allergies Allergies Allergies Coded Allergies Type Severity Reaction Last Updated Verified Sulfa (Sulfonamide Antibiotics) Allergy Intermediate N/V, RASH 10/29/16 Yes I S O L A T I O N *CONTACT* Allergy Unknown 08/12/15 Yes ROS Review of System CONSTITUTIONAL: felt hot and cold as above EYES: No recent changes SKIN: No rash or itching CARDIOVASCULAR: see HPI RESPIRATORY: No increase SOB or cough GASTROINTESTINAL: + nausea No vomiting or abdominal pain NEUROLOGICAL: No headaches or weakness ENDOCRINE: No cold or heat intolerance GENITOURINARY: No urgency or frequency of urination MUSCULOSKELETAL: No back pain or joint pain LYMPHATICS: No enlarged lymph nodes Physical Exam Physical Exam GEN.: No apparent distress. Alert and oriented. HEENT: Head is normocephalic, atraumatic NECK: Supple. LUNGS: Clear to auscultation. HEART: RRR, S1, S2 present. Peripheral pulses intact ABDOMEN: Soft, nontender. Positive bowel sounds. EXTREMITIES: Without any cyanosis. NEUROLOGIC: Normal speech, normal tone PSYCHIATRIC: Normal affect, normal mood. SKIN: No ulcerations Vitals Vitals Vital Signs Date Time Temp Pulse Resp B/P (MAP) Pulse Ox O2 Delivery O2 Flow Rate FiO2 10/30/16 07:58 66 141/78 10/30/16 07:00 97.9 18 95 Nasal Cannula 2.0 97.9 Labs Labs Laboratory Tests Test 10/29/16 10:50 10/29/16 13:30 10/29/16 16:20 10/29/16 17:02 White Blood Count 8.5 x10^3/uL (4.0-11.0) Red Blood Count 5.92 x10^6/uL (4.30-5.70) Hemoglobin 15.6 g/dL (13.0-17.5) Hematocrit 47.2 % (39.0-53.0) Mean Corpuscular Volume 80 fL (79-100) Mean Corpuscular Hemoglobin 26 pg (25-35) Mean Corpuscular Hemoglobin Concent 33 g/dL (31-37) Red Cell Distribution Width 15.7 % (11.5-14.5) Platelet Count 229 x10^3/uL (140-400) Neutrophils (%) (Auto) 69 % (31-73) Lymphocytes (%) (Auto) 16 % (24-48) Monocytes (%) (Auto) 11 % (0-9) Eosinophils (%) (Auto) 3 % (0-3) Basophils (%) (Auto) 1 % (0-3) Neutrophils # (Auto) 5.9 x10^3uL (1.8-7.7) Lymphocytes # (Auto) 1.4 x10^3/uL (1.0-4.8) Monocytes # (Auto) 0.9 x10^3/uL (0.0-1.1) Eosinophils # (Auto) 0.3 x10^3/uL (0.0-0.7) Basophils # (Auto) 0.1 x10^3/uL (0.0-0.2) Sodium Level 136 mmol/L (136-145) Potassium Level 4.3 mmol/L (3.5-5.1) Chloride Level 100 mmol/L (98-107) Carbon Dioxide Level 29 mmol/L (21-32) Anion Gap 7 (6-14) Blood Urea Nitrogen 22 mg/dL (8-26) Creatinine 1.2 mg/dL (0.7-1.3) Estimated GFR (Cockcroft-Gault) 59.9 Glucose Level 146 mg/dL (70-99) Calcium Level 8.9 mg/dL (8.5-10.1) Magnesium Level 2.0 mg/dL (1.8-2.4) Total Bilirubin 0.6 mg/dL (0.2-1.0) Direct Bilirubin 0.1 mg/dL (0.0-0.2) Aspartate Amino Transf (AST/SGOT) 24 U/L (15-37) Alanine Aminotransferase (ALT/SGPT) 24 U/L (16-63) Alkaline Phosphatase 46 U/L (46-116) Creatine Kinase 167 U/L (39-308) Creatine Kinase MB (Mass) 9.0 ng/mL (0.0-3.6) Creatine Kinase MB Relative Index 5.4 % (0-4) Troponin I Quantitative 0.029 ng/mL (0.000-0.055) 0.026 ng/mL (0.000-0.055) 0.019 ng/mL (0.000-0.055) TA-Okm-D-Type Natriuretic Peptide 103 pg/mL (0-124) Total Protein 7.4 g/dL (6.4-8.2) Albumin 3.5 g/dL (3.4-5.0) Lipase 163 U/L (73-393) Thyroid Stimulating Hormone (TSH) 0.050 uIU/mL (0.358-3.74) Glucose (Fingerstick) 116 mg/dL (70-99) Test 10/29/16 18:09 9/15/17 18:45 10/29/16 20:19 10/30/16 01:00 Glucose (Fingerstick) 186 mg/dL (70-99) 183 mg/dL (70-99) Urine Collection Type Unknown Urine Color Yellow Urine Clarity Clear Urine pH 5.5 Urine Specific [place] 1.020 Urine Protein Negative mg/dL (NEG-TRACE) Urine Glucose (UA) Negative mg/dL (NEG) Urine Ketones (Stick) Negative mg/dL (NEG) Urine Blood Small (NEG) Urine Nitrite Negative (NEG) Urine Bilirubin Negative (NEG) Urine Urobilinogen Dipstick 0.2 mg/dL (0.2 mg/dL) Urine Leukocyte Esterase Small (NEG) Urine RBC 11-20 /HPF (0-2) Urine WBC 5-10 /HPF (0-4) Urine Squamous Epithelial Cells Few /LPF Urine Bacteria 0 /HPF (0-FEW) Urine Mucus Marked /LPF Troponin I Quantitative 0.033 ng/mL (0.000-0.055) Test 10/30/16 04:45 White Blood Count 7.1 x10^3/uL (4.0-11.0) Red Blood Count 5.59 x10^6/uL (4.30-5.70) Hemoglobin 15.1 g/dL (13.0-17.5) Hematocrit 44.8 % (39.0-53.0) Mean Corpuscular Volume 80 fL (79-100) Mean Corpuscular Hemoglobin 27 pg (25-35) Mean Corpuscular Hemoglobin Concent 34 g/dL (31-37) Red Cell Distribution Width 16.2 % (11.5-14.5) Platelet Count 222 x10^3/uL (140-400) Neutrophils (%) (Auto) 58 % (31-73) Lymphocytes (%) (Auto) 25 % (24-48) Monocytes (%) (Auto) 13 % (0-9) Eosinophils (%) (Auto) 3 % (0-3) Basophils (%) (Auto) 1 % (0-3) Neutrophils # (Auto) 4.1 x10^3uL (1.8-7.7) Lymphocytes # (Auto) 1.8 x10^3/uL (1.0-4.8) Monocytes # (Auto) 0.9 x10^3/uL (0.0-1.1) Eosinophils # (Auto) 0.2 x10^3/uL (0.0-0.7) Basophils # (Auto) 0.1 x10^3/uL (0.0-0.2) Sodium Level 135 mmol/L (136-145) Potassium Level 3.8 mmol/L (3.5-5.1) Chloride Level 98 mmol/L (98-107) Carbon Dioxide Level 27 mmol/L (21-32) Anion Gap 10 (6-14) Blood Urea Nitrogen 21 mg/dL (8-26) Creatinine 1.0 mg/dL (0.7-1.3) Estimated GFR (Cockcroft-Gault) 73.9 Glucose Level 115 mg/dL (70-99) Calcium Level 8.8 mg/dL (8.5-10.1) Laboratory Tests Test 10/29/16 10:50 10/29/16 13:30 10/29/16 16:20 10/29/16 17:02 White Blood Count 8.5 x10^3/uL (4.0-11.0) Red Blood Count 5.92 x10^6/uL (4.30-5.70) Hemoglobin 15.6 g/dL (13.0-17.5) Hematocrit 47.2 % (39.0-53.0) Mean Corpuscular Volume 80 fL (79-100) Mean Corpuscular Hemoglobin 26 pg (25-35) Mean Corpuscular Hemoglobin Concent 33 g/dL (31-37) Red Cell Distribution Width 15.7 % (11.5-14.5) Platelet Count 229 x10^3/uL (140-400) Neutrophils (%) (Auto) 69 % (31-73) Lymphocytes (%) (Auto) 16 % (24-48) Monocytes (%) (Auto) 11 % (0-9) Eosinophils (%) (Auto) 3 % (0-3) Basophils (%) (Auto) 1 % (0-3) Neutrophils # (Auto) 5.9 x10^3uL (1.8-7.7) Lymphocytes # (Auto) 1.4 x10^3/uL (1.0-4.8) Monocytes # (Auto) 0.9 x10^3/uL (0.0-1.1) Eosinophils # (Auto) 0.3 x10^3/uL (0.0-0.7) Basophils # (Auto) 0.1 x10^3/uL (0.0-0.2) Sodium Level 136 mmol/L (136-145) Potassium Level 4.3 mmol/L (3.5-5.1) Chloride Level 100 mmol/L (98-107) Carbon Dioxide Level 29 mmol/L (21-32) Anion Gap 7 (6-14) Blood Urea Nitrogen 22 mg/dL (8-26) Creatinine 1.2 mg/dL (0.7-1.3) Estimated GFR (Cockcroft-Gault) 59.9 Glucose Level 146 mg/dL (70-99) Calcium Level 8.9 mg/dL (8.5-10.1) Magnesium Level 2.0 mg/dL (1.8-2.4) Total Bilirubin 0.6 mg/dL (0.2-1.0) Direct Bilirubin 0.1 mg/dL (0.0-0.2) Aspartate Amino Transf (AST/SGOT) 24 U/L (15-37) Alanine Aminotransferase (ALT/SGPT) 24 U/L (16-63) Alkaline Phosphatase 46 U/L (46-116) Creatine Kinase 167 U/L (39-308) Creatine Kinase MB (Mass) 9.0 ng/mL (0.0-3.6) Creatine Kinase MB Relative Index 5.4 % (0-4) Troponin I Quantitative 0.029 ng/mL (0.000-0.055) 0.026 ng/mL (0.000-0.055) 0.019 ng/mL (0.000-0.055) US-Gqi-A-Type Natriuretic Peptide 103 pg/mL (0-124) Total Protein 7.4 g/dL (6.4-8.2) Albumin 3.5 g/dL (3.4-5.0) Lipase 163 U/L (73-393) Thyroid Stimulating Hormone (TSH) 0.050 uIU/mL (0.358-3.74) Glucose (Fingerstick) 116 mg/dL (70-99) Test 10/29/16 18:09 10/29/16 18:45 10/29/16 20:19 10/30/16 01:00 Glucose (Fingerstick) 186 mg/dL (70-99) 183 mg/dL (70-99) Urine Collection Type Unknown Urine Color Yellow Urine Clarity Clear Urine pH 5.5 Urine Specific [place] 1.020 Urine Protein Negative mg/dL (NEG-TRACE) Urine Glucose (UA) Negative mg/dL (NEG) Urine Ketones (Stick) Negative mg/dL (NEG) Urine Blood Small (NEG) Urine Nitrite Negative (NEG) Urine Bilirubin Negative (NEG) Urine Urobilinogen Dipstick 0.2 mg/dL (0.2 mg/dL) Urine Leukocyte Esterase Small (NEG) Urine RBC 11-20 /HPF (0-2) Urine WBC 5-10 /HPF (0-4) Urine Squamous Epithelial Cells Few /LPF Urine Bacteria 0 /HPF (0-FEW) Urine Mucus Marked /LPF Troponin I Quantitative 0.033 ng/mL (0.000-0.055) Test 10/30/16 04:45 White Blood Count 7.1 x10^3/uL (4.0-11.0) Red Blood Count 5.59 x10^6/uL (4.30-5.70) Hemoglobin 15.1 g/dL (13.0-17.5) Hematocrit 44.8 % (39.0-53.0) Mean Corpuscular Volume 80 fL (79-100) Mean Corpuscular Hemoglobin 27 pg (25-35) Mean Corpuscular Hemoglobin Concent 34 g/dL (31-37) Red Cell Distribution Width 16.2 % (11.5-14.5) Platelet Count 222 x10^3/uL (140-400) Neutrophils (%) (Auto) 58 % (31-73) Lymphocytes (%) (Auto) 25 % (24-48) Monocytes (%) (Auto) 13 % (0-9) Eosinophils (%) (Auto) 3 % (0-3) Basophils (%) (Auto) 1 % (0-3) Neutrophils # (Auto) 4.1 x10^3uL (1.8-7.7) Lymphocytes # (Auto) 1.8 x10^3/uL (1.0-4.8) Monocytes # (Auto) 0.9 x10^3/uL (0.0-1.1) Eosinophils # (Auto) 0.2 x10^3/uL (0.0-0.7) Basophils # (Auto) 0.1 x10^3/uL (0.0-0.2) Sodium Level 135 mmol/L (136-145) Potassium Level 3.8 mmol/L (3.5-5.1) Chloride Level 98 mmol/L (98-107) Carbon Dioxide Level 27 mmol/L (21-32) Anion Gap 10 (6-14) Blood Urea Nitrogen 21 mg/dL (8-26) Creatinine 1.0 mg/dL (0.7-1.3) Estimated GFR (Cockcroft-Gault) 73.9 Glucose Level 115 mg/dL (70-99) Calcium Level 8.8 mg/dL (8.5-10.1) VTE Prophylaxis Ordered VTE Prophylaxis Devices: Yes VTE Pharmacological Prophylaxi: No Assessment/Plan Assessment/Plan 1- chest pain serial enzymes and C.V consult he is for stress test this AM 2-CAD hx CABG 3-HTN 4- DM II insulin requiring 5-hypothyroidism 6-COPD he seemed feeling better and wanted to go home if stress test ok . KIANA VELAZQUEZ MD Oct 30, 2016 08:46
[2016-10-30] MEDS ORDERED: ATORVASTATIN CALCIUM 10 MG TABLET. PO SCH (09:00)
[2016-10-30] MEDS ORDERED: HYDROCORTISONE 10 MG TABLET PO SCH (09:00)
[2016-10-30] MEDS ORDERED: NON FORMULARY ITEM (Coconut Oil 1,000 MG) PO SCH (09:00)
[2016-10-30] MEDS ORDERED: METHYLSULFONYLMETHANE 1000 MG PO SCH (09:00)
[2016-10-30] MEDS ORDERED: buPROPion 100 MG TABLET PO SCH (09:00)
[2016-10-30] MEDS: METOPROLOL TART IMMED RELEASE 50 MG TABLET. PO SCH ×2 (09:00→21:15)
[2016-10-30] MEDS ORDERED: NON FORMULARY ITEM (Ubidecarenone (Coq-10) 100 MG) PO SCH (09:00)
[2016-10-30] MEDS ORDERED: ASTAXANTHIN 12 MG PO SCH (09:00)
[2016-10-30] MEDS: INSULIN DETEMIR 300 UNITS/3 ML INSULN.PEN. SQ SCH ×2 (09:00→21:20)
[2016-10-30 11:00] VITALS: BP 104/82
[2016-10-30] MEDS ORDERED: REGADENOSON 0.4 MG/5 ML DISP.SYRIN. IV ONE ×2 (11:10→11:15)
[2016-10-30] MEDS: ASPIRIN 325 MG TABLET PO SCH (13:14)
[2016-10-30] MEDS: VITAMIN B COMPLEX TABLET. PO SCH (13:14)
[2016-10-30] MEDS: POTASSIUM CHLORIDE 20 MEQ TABLET.ER. PO SCH ×2 (13:14→17:00)
[2016-10-30] MEDS: MULTIVITAMIN with MINERAL TABLET. PO SCH (13:14)
[2016-10-30] MEDS: OMEGA-3 FATTY ACIDS/FISH OIL 1,000 MG CAPSULE. PO SCH (13:14)
--- NOTE | 2016-10-30 13:15 | PDOC ---
PROGRESS NOTES Subjective Subjective No chest pain today. Objective Objective Vital Signs Date Time Temp Pulse Resp B/P (MAP) Pulse Ox O2 Delivery O2 Flow Rate FiO2 10/30/16 11:00 99.2 72 18 104/82 (89) 94 Room Air 99.2 10/30/16 07:00 2.0 Physical Exam Physical Exam No significant changes in cardiac exam Assessment Assessment The stress MPI is pending. If the MPI is negative patient may go home. Problems Medical Problems: (1) Chest pain Status: Acute Comment Review of Relevant I have reviewed the following items leonardo (where applicable) has been applied. Labs Laboratory Tests Test 10/29/16 10:50 10/29/16 13:30 10/29/16 16:20 10/29/16 17:02 White Blood Count 8.5 x10^3/uL (4.0-11.0) Red Blood Count 5.92 x10^6/uL (4.30-5.70) Hemoglobin 15.6 g/dL (13.0-17.5) Hematocrit 47.2 % (39.0-53.0) Mean Corpuscular Volume 80 fL (79-100) Mean Corpuscular Hemoglobin 26 pg (25-35) Mean Corpuscular Hemoglobin Concent 33 g/dL (31-37) Red Cell Distribution Width 15.7 % (11.5-14.5) Platelet Count 229 x10^3/uL (140-400) Neutrophils (%) (Auto) 69 % (31-73) Lymphocytes (%) (Auto) 16 % (24-48) Monocytes (%) (Auto) 11 % (0-9) Eosinophils (%) (Auto) 3 % (0-3) Basophils (%) (Auto) 1 % (0-3) Neutrophils # (Auto) 5.9 x10^3uL (1.8-7.7) Lymphocytes # (Auto) 1.4 x10^3/uL (1.0-4.8) Monocytes # (Auto) 0.9 x10^3/uL (0.0-1.1) Eosinophils # (Auto) 0.3 x10^3/uL (0.0-0.7) Basophils # (Auto) 0.1 x10^3/uL (0.0-0.2) Sodium Level 136 mmol/L (136-145) Potassium Level 4.3 mmol/L (3.5-5.1) Chloride Level 100 mmol/L (98-107) Carbon Dioxide Level 29 mmol/L (21-32) Anion Gap 7 (6-14) Blood Urea Nitrogen 22 mg/dL (8-26) Creatinine 1.2 mg/dL (0.7-1.3) Estimated GFR (Cockcroft-Gault) 59.9 Glucose Level 146 mg/dL (70-99) Calcium Level 8.9 mg/dL (8.5-10.1) Magnesium Level 2.0 mg/dL (1.8-2.4) Total Bilirubin 0.6 mg/dL (0.2-1.0) Direct Bilirubin 0.1 mg/dL (0.0-0.2) Aspartate Amino Transf (AST/SGOT) 24 U/L (15-37) Alanine Aminotransferase (ALT/SGPT) 24 U/L (16-63) Alkaline Phosphatase 46 U/L (46-116) Creatine Kinase 167 U/L (39-308) Creatine Kinase MB (Mass) 9.0 ng/mL (0.0-3.6) Creatine Kinase MB Relative Index 5.4 % (0-4) Troponin I Quantitative 0.029 ng/mL (0.000-0.055) 0.026 ng/mL (0.000-0.055) 0.019 ng/mL (0.000-0.055) CL-Hnu-L-Type Natriuretic Peptide 103 pg/mL (0-124) Total Protein 7.4 g/dL (6.4-8.2) Albumin 3.5 g/dL (3.4-5.0) Lipase 163 U/L (73-393) Thyroid Stimulating Hormone (TSH) 0.050 uIU/mL (0.358-3.74) Glucose (Fingerstick) 116 mg/dL (70-99) Test 10/29/16 18:09 10/29/16 18:45 10/29/16 20:19 10/30/16 01:00 Glucose (Fingerstick) 186 mg/dL (70-99) 183 mg/dL (70-99) Urine Collection Type Unknown Urine Color Yellow Urine Clarity Clear Urine pH 5.5 Urine Specific [place] 1.020 Urine Protein Negative mg/dL (NEG-TRACE) Urine Glucose (UA) Negative mg/dL (NEG) Urine Ketones (Stick) Negative mg/dL (NEG) Urine Blood Small (NEG) Urine Nitrite Negative (NEG) Urine Bilirubin Negative (NEG) Urine Urobilinogen Dipstick 0.2 mg/dL (0.2 mg/dL) Urine Leukocyte Esterase Small (NEG) Urine RBC 11-20 /HPF (0-2) Urine WBC 5-10 /HPF (0-4) Urine Squamous Epithelial Cells Few /LPF Urine Bacteria 0 /HPF (0-FEW) Urine Mucus Marked /LPF Troponin I Quantitative 0.033 ng/mL (0.000-0.055) Test 10/30/16 04:45 White Blood Count 7.1 x10^3/uL (4.0-11.0) Red Blood Count 5.59 x10^6/uL (4.30-5.70) Hemoglobin 15.1 g/dL (13.0-17.5) Hematocrit 44.8 % (39.0-53.0) Mean Corpuscular Volume 80 fL (79-100) Mean Corpuscular Hemoglobin 27 pg (25-35) Mean Corpuscular Hemoglobin Concent 34 g/dL (31-37) Red Cell Distribution Width 16.2 % (11.5-14.5) Platelet Count 222 x10^3/uL (140-400) Neutrophils (%) (Auto) 58 % (31-73) Lymphocytes (%) (Auto) 25 % (24-48) Monocytes (%) (Auto) 13 % (0-9) Eosinophils (%) (Auto) 3 % (0-3) Basophils (%) (Auto) 1 % (0-3) Neutrophils # (Auto) 4.1 x10^3uL (1.8-7.7) Lymphocytes # (Auto) 1.8 x10^3/uL (1.0-4.8) Monocytes # (Auto) 0.9 x10^3/uL (0.0-1.1) Eosinophils # (Auto) 0.2 x10^3/uL (0.0-0.7) Basophils # (Auto) 0.1 x10^3/uL (0.0-0.2) Sodium Level 135 mmol/L (136-145) Potassium Level 3.8 mmol/L (3.5-5.1) Chloride Level 98 mmol/L (98-107) Carbon Dioxide Level 27 mmol/L (21-32) Anion Gap 10 (6-14) Blood Urea Nitrogen 21 mg/dL (8-26) Creatinine 1.0 mg/dL (0.7-1.3) Estimated GFR (Cockcroft-Gault) 73.9 Glucose Level 115 mg/dL (70-99) Calcium Level 8.8 mg/dL (8.5-10.1) Laboratory Tests Test 10/29/16 13:30 10/29/16 16:20 10/29/16 17:02 10/29/16 18:09 Troponin I Quantitative 0.026 ng/mL (0.000-0.055) 0.019 ng/mL (0.000-0.055) Glucose (Fingerstick) 116 mg/dL (70-99) 186 mg/dL (70-99) Test 10/29/16 18:45 10/29/16 20:19 10/30/16 01:00 10/30/16 04:45 Urine Collection Type Unknown Urine Color Yellow Urine Clarity Clear Urine pH 5.5 Urine Specific [place] 1.020 Urine Protein Negative mg/dL (NEG-TRACE) Urine Glucose (UA) Negative mg/dL (NEG) Urine Ketones (Stick) Negative mg/dL (NEG) Urine Blood Small (NEG) Urine Nitrite Negative (NEG) Urine Bilirubin Negative (NEG) Urine Urobilinogen Dipstick 0.2 mg/dL (0.2 mg/dL) Urine Leukocyte Esterase Small (NEG) Urine RBC 11-20 /HPF (0-2) Urine WBC 5-10 /HPF (0-4) Urine Squamous Epithelial Cells Few /LPF Urine Bacteria 0 /HPF (0-FEW) Urine Mucus Marked /LPF Glucose (Fingerstick) 183 mg/dL (70-99) Troponin I Quantitative 0.033 ng/mL (0.000-0.055) White Blood Count 7.1 x10^3/uL (4.0-11.0) Red Blood Count 5.59 x10^6/uL (4.30-5.70) Hemoglobin 15.1 g/dL (13.0-17.5) Hematocrit 44.8 % (39.0-53.0) Mean Corpuscular Volume 80 fL (79-100) Mean Corpuscular Hemoglobin 27 pg (25-35) Mean Corpuscular Hemoglobin Concent 34 g/dL (31-37) Red Cell Distribution Width 16.2 % (11.5-14.5) Platelet Count 222 x10^3/uL (140-400) Neutrophils (%) (Auto) 58 % (31-73) Lymphocytes (%) (Auto) 25 % (24-48) Monocytes (%) (Auto) 13 % (0-9) Eosinophils (%) (Auto) 3 % (0-3) Basophils (%) (Auto) 1 % (0-3) Neutrophils # (Auto) 4.1 x10^3uL (1.8-7.7) Lymphocytes # (Auto) 1.8 x10^3/uL (1.0-4.8) Monocytes # (Auto) 0.9 x10^3/uL (0.0-1.1) Eosinophils # (Auto) 0.2 x10^3/uL (0.0-0.7) Basophils # (Auto) 0.1 x10^3/uL (0.0-0.2) Sodium Level 135 mmol/L (136-145) Potassium Level 3.8 mmol/L (3.5-5.1) Chloride Level 98 mmol/L (98-107) Carbon Dioxide Level 27 mmol/L (21-32) Anion Gap 10 (6-14) Blood Urea Nitrogen 21 mg/dL (8-26) Creatinine 1.0 mg/dL (0.7-1.3) Estimated GFR (Cockcroft-Gault) 73.9 Glucose Level 115 mg/dL (70-99) Calcium Level 8.8 mg/dL (8.5-10.1) Medications Current Medications Aspirin (Children'S Aspirin) 324 mg 1X ONCE PO Last administered on 10/29/16t 11:02; Start 10/29/16 at 10:45; Stop 10/29/16 at 10:46; Status DC Nitroglycerin (Nitrostat) 0.4 mg PRN Q5MIN PRN SL CP RATING > 1/10; Start 10/29 at 10:45; Stop 10/30/16 at 10:44; Status DC Enoxaparin Sodium (Lovenox Per Pharmacy Treatment Dosing) 1 each PRN DAILY PRN MC SEE COMMENTS; Start 10/29/16 at 12:00 Enoxaparin Sodium (Lovenox 120mg Syringe) 110 mg Q12HR SQ Last administered on 10/29/16 21:20; Start 10/29/16 at 12:00 Ondansetron HCl (Zofran) 4 mg PRN Q8HRS PRN IV NAUSEA/VOMITING; Start 10/29/16 at 12:30; Stop 10/30/16 at 12:29; Status DC Morphine Sulfate 2 mg PRN Q2HR PRN IV PAIN; Start 10/29/16 at 12:30; Stop 10/30 at 12:29; Status DC Nitroglycerin (Nitrostat) 0.4 mg PRN Q5MIN PRN SL CHEST PAIN; Start 10/29/16 at 12:30; Stop 10/30/16 at 12:29; Status Cancel Dextrose (Dextrose 50%-Water Syringe) 12.5 gm PRN Q15MIN PRN IV SEE COMMENTS; Start 10/29/16 at 14:30 Amlodipine Besylate (Norvasc) 5 mg DAILY PO Last administered on 10/30/16 07: 58; Start 10/30/16 at 09:00 Aspirin (David Aspirin) 325 mg DAILY PO ; Start 10/30/16 at 09:00 Atorvastatin Calcium (Lipitor) 10 mg DAILY PO ; Start 10/30/16 at 09:00 Bupropion HCl (Wellbutrin) 300 mg DAILY PO ; Start 10/30/16 at 09:00 Clopidogrel Bisulfate (Plavix) 75 mg DAILY PO ; Start 10/30/16 at 09:00 Furosemide (Lasix) 40 mg DAILY PO ; Start 10/30/16 at 09:00 Levothyroxine Sodium (Synthroid) 150 mcg DAILY06 PO Last administered on 06:27; Start 10/30/16 at 06:00 Metoprolol Tartrate (Lopressor) 50 mg BID PO Last administered on 10/29/16 21: 18; Start 10/29/16 at 21:00 Acetaminophen (Tylenol) 500 mg PRN Q6HRS PRN PO PAIN; Start 10/29/16 at 17:15 Non-Formulary Medication 12 mg DAILY PO ; Start 10/30/16 at 09:00; Status UNV Vitamin D (Vitamin D3) 2,000 unit DAILY PO ; Start 10/30/16 at 09:00 Non-Formulary Medication 1,000 mg DAILY PO ; Start 10/30/16 at 09:00; Status UNV Multivitamins (Thera M Plus) 1 tab DAILY PO ; Start 10/30/16 at 09:00 Insulin Detemir (Levemir) 40 units BID SQ Last administered on 10/29/16 22:07 ; Start 10/29/16 at 21:00 Non-Formulary Medication 1,000 mg DAILY PO ; Start 10/30/16 at 09:00; Status UNV Fish Oil (Fish Oil) 1,000 mg DAILY PO ; Start 10/29/16 at 18:00 Potassium Chloride (Klor-Con) 20 meq BIDWMEALS PO ; Start 10/29/16 at 18:00 Non-Formulary Medication 100 mg DAILY PO ; Start 10/30/16 at 09:00; Status UNV Vitamin B Complex (Javier B) 1 tab DAILY PO ; Start 10/29/16 at 18:00 Bupropion HCl (Wellbutrin) 300 mg DAILY PO ; Start 10/30/16 at 09:00; Status Cancel Insulin Aspart (NovoLOG) 20 units TIDAC SQ Last administered on 10/29/16 18:11 ; Start 10/29/16 at 18:00 Hydrocortisone (Cortef) 10 mg BID92 PO ; Start 10/30/16 at 09:00; Stop 10/30/16 at 09:00; Status DC Hydrocortisone (Cortef) 10 mg BID92 PO Last administered on 10/29/16 21:14; Start 10/29/16 at 21:00 Doxycycline Hyclate (Vibra-Tab) 100 mg BID PO ; Start 10/30/16 at 11:00 Regadenoson (Lexiscan) 0.4 mg 1X ONCE IV ; Start 10/30/16 at 11:15; Stop at 11:16; Status DC Active Scripts Active Reported Hydrocortisone 10 Mg Tablet 10 Mg PO BID Humalog (Insulin Lispro) 100 Unit/1 Ml Insuln.pen 20 Unit SQ TIDAC Tylophen (Acetaminophen) 500 Mg Capsule 500 Mg PO PRN Q4-6HRS PRN Astaxanthin 4 Mg Capsule 12 Mg PO DAILY Msm (Methylsulfonylmethane) 1,000 Mg Capsule 1,000 Mg PO DAILY Coconut Oil 1,000 Mg Capsule 1,000 Mg PO DAILY D3-2000 (Cholecalciferol (Vitamin D3)) 2,000 Unit Capsule 2,000 Unit PO DAILY Coq-10 (Ubidecarenone) 100 Mg Capsule 100 Mg PO DAILY Super B Complex (Vitamin B Complex & Vit C No.4) 150 Mg Tablet 150 Mg PO DAILY Adult Multivitamin Gummies (Folic Acid/Multivits-Min) 200 Mcg Tab.chew 200 Mcg PO DAILY Fish Oil 1,200 Mg Softgel ([place]-3 Fatty Acids/Fish Oil) 1 Each Capsule 1 Each PO DAILY Aspirin 325 Mg Tablet 1 Tab PO DAILY Clopidogrel (Clopidogrel Bisulfate) 75 Mg Tablet 1 Tab PO DAILY Bupropion Hcl 100 Mg Tablet 300 Mg PO DAILY Atorvastatin Calcium 10 Mg Tablet 1 Tab PO DAILY Lasix (Furosemide) 40 Mg Tablet 1 Tab PO DAILY Potassium Chloride 20 Meq Tablet.er 20 Meq PO BID Metoprolol Tartrate 50 Mg Tablet 1 Tab PO BID Amlodipine Besylate 5 Mg Tablet 5 Mg PO DAILY Levothyroxine Sodium 150 Mcg Tablet 1 Tab PO DAILY Relion Novolin 70-30 Vial (Hum Insulin Nph/Reg Insulin Hm) 100 Unit/1 Ml Vial 40 Unit SQ BID Vitals/I & O Vital Sign - Last 24 Hours 10/29/16 10/29/16 10/29/16 10/29/16 13:15 14:19 15:00 18:48 Temp 98.4 97.5 98.2 98.4 97.5 98.2 Pulse 63 60 65 Resp 18 17 B/P (MAP) 113/74 (87) 116/74 (88) 143/98 (113) Pulse Ox 99 98 97 O2 Delivery Room Air Room Air Room Air Room Air 10/29/16 10/29/16 10/29/16 10/30/16 20:30 21:18 23:23 03:20 Temp 98.5 98.6 98.5 98.6 Pulse 81 66 59 Resp 20 B/P (MAP) 122/64 146/63 (90) 160/69 (99) Pulse Ox 95 96 O2 Delivery Room Air Room Air Room Air O2 Flow Rate 2.0 10/30/16 10/30/16 10/30/16 07:00 07:58 11:00 Temp 97.9 99.2 97.9 99.2 Pulse 66 66 72 Resp 18 18 B/P (MAP) 141/78 (99) 141/78 104/82 (89) Pulse Ox 95 94 O2 Delivery Nasal Cannula Room Air O2 Flow Rate 2.0 MANUEL MIKE MD Oct 30, 2016 13:15
[2016-10-30] MEDS: CLOPIDOGREL BISULFATE 75 MG TABLET PO SCH (13:16)
[2016-10-30] MEDS: buPROPion 100 MG TABLET PO SCH (13:16)
[2016-10-30] MEDS: CHOLECALCIFEROL (VITAMIN D3) 1,000 UNIT TABLET PO SCH (13:16)
[2016-10-30] MEDS: FUROSEMIDE 40 MG TABLET. PO SCH (13:18)
[2016-10-30] MEDS: HYDROCORTISONE 10 MG TABLET PO SCH ×2 (13:19→14:00)
[2016-10-30] MEDS: DOXYCYCLINE HYCLATE 100 MG TABLET PO SCH ×2 (13:24→21:14)
[2016-10-30 15:08] VITALS: BP 136/53
[2016-10-30 19:30] VITALS: BP 124/62
[2016-10-30] MEDS: ATORVASTATIN CALCIUM 10 MG TABLET. PO SCH (21:14)
[2016-10-30 23:40] VITALS: BP 126/64
[2016-10-31 03:40] VITALS: BP 167/70
[2016-10-31 05:32] LABS: HEMATOCRIT 45.9 % (39.0-53.0); HEMOGLOBIN 15.2 g/dL (13.0-17.5); RED BLOOD COUNT 5.76 x10^6/uL (4.30-5.70); RED CELL DISTRIBUTION WIDTH 15.4 % (11.5-14.5); WHITE BLOOD COUNT 5.5 x10^3/uL (4.0-11.0)
[2016-10-31 05:43] LABS: CALCIUM 9.3 mg/dL (8.5-10.1); GFR 73.9; POTASSIUM 4.1 mmol/L (3.5-5.1)
[2016-10-31] MEDS: LEVOTHYROXINE 150 MCG TABLET PO SCH (06:23)
[2016-10-31] MEDS: INSULIN ASPART 300 UNITS/3 ML INSULN.PEN SQ SCH ×3 (07:30→16:30)
[2016-10-31 07:56] VITALS: BP 133/66
[2016-10-31] MEDS: OMEGA-3 FATTY ACIDS/FISH OIL 1,000 MG CAPSULE. PO SCH (09:00)
[2016-10-31] MEDS: INSULIN DETEMIR 300 UNITS/3 ML INSULN.PEN. SQ SCH ×2 (09:00→21:34)
[2016-10-31] MEDS: HYDROCORTISONE 10 MG TABLET PO SCH ×2 (09:35→14:00)
[2016-10-31] MEDS: buPROPion 100 MG TABLET PO SCH (09:35)
[2016-10-31] MEDS: CLOPIDOGREL BISULFATE 75 MG TABLET PO SCH (09:35)
[2016-10-31] MEDS: DOXYCYCLINE HYCLATE 100 MG TABLET PO SCH ×2 (09:36→21:15)
[2016-10-31] MEDS: VITAMIN B COMPLEX TABLET. PO SCH (09:36)
[2016-10-31] MEDS: CHOLECALCIFEROL (VITAMIN D3) 1,000 UNIT TABLET PO SCH (09:36)
[2016-10-31] MEDS: ASPIRIN 325 MG TABLET PO SCH (09:36)
[2016-10-31] MEDS: MULTIVITAMIN with MINERAL TABLET. PO SCH (09:36)
[2016-10-31] MEDS: POTASSIUM CHLORIDE 20 MEQ TABLET.ER. PO SCH ×2 (09:36→17:00)
[2016-10-31] MEDS: METOPROLOL TART IMMED RELEASE 50 MG TABLET. PO SCH ×2 (09:37→21:16)
[2016-10-31] MEDS: FUROSEMIDE 40 MG TABLET. PO SCH (09:37)
[2016-10-31] MEDS: amLODIPine BESYLATE 5 MG TABLET PO SCH (09:37)
[2016-10-31 11:56] VITALS: BP 123/72
--- NOTE | 2016-10-31 12:44 | RAD ---
APPROVED REPORT Test Type: Pharmacological Stress Nurse/Tech: Beth Hilliard R.N. Test Indications: CP/CAD Cardiac History: CABG, multiple stents, PPM Medications: SEE EMR Medical History: SEE EMR Resting ECG: SR Resting Heart Rate: 63 bpm Resting Blood Pressure: 100/52mmHg Pretest Chest Pain: None Nurse/Tech Notes S1S2, lungs CTA, denied chest pain and SOA. Pt has a sore on the side of his foot but is agreeable to attempt the treadmill test. He became extremely SOA and c/o of leg and hip pain. Elected to end the treadmill test at the 3 minute leonardo. Max HR was 112. Needed a target of 127. Pt recovered within thre e minutes of rest. Converted to [employer]. Consent: The procedure was explained to the patient in lay terms. Informed consent was witnessed. Miguelito eout was entered into [employer]. History and Stress Test performed by Beth Hilliard R.N. Pharm. Details Pharmacologic stress testing was performed using 0.4mg per 5ml of regadenoson given intravenously ove r 7-10 seconds. Stress Symptoms SOA. POST EXERCISE Reason for Termination: Patient request Max HR: 88 bpm Max Blood Pressure: 116/46mmHg Blood Pressure response to exercise: Normal blood pressure response during stress. Heart Rate response to exercise: Normal Chest Pain: No. Arrhythmia: Yes. Infrequent PAC's and PVC ST Change: No. INTERPRETATION Stress EKG Conclusion: No acute changes were noted. Imaging Protocol IMAGE PROTOCOL: Stress Tc-99m/rest Tc-99m 2 days Rest: Stress: Viability: Radiopharm.Tc99m [id number] Sestamibi [id number] 40mCi Duration 15min. 15min. Img Date 10/31/2016 10/30/2016 Inj-Img [id number]. 60min. Rest Admin Site:IV - Left AntecubitalAdministrator:RT Pricila (R)(N) Stress Admin Site: IV - Left AntecubitalAdministrator: RT Pricila (R)(N) STRESS DATA End Diast. Vol.173.0mlAv. Heart Rate70.0bpm End Syst. Vol.55.0mlCO Index BSA0.0L/min Myocardial Ngol112.0gEject. Izjekntt95.0% Stress Rates Pk. Fill Rate2.37EDV/secLVtime Pk. Fill 109.39msec Pk. Empty Rate3.18ESV/secLVtime Pk. Ioabw320.02msec 1/ Pk. Fill1.71EDV/sec Stress Scores Regional WT1.00Summed WT13.00 Regional WM0.00Summed WM9.00 LV Perf. Quant 17 Seg. SSS6.00 Stress Defect Extent (% LAD)32.50Rest Defect Extent (% LAD)Rev. Defect Extent (% LAD)0.00 Stress Defect Extent (% LCX) 0.00Rest Defect Extent (% LCX)Rev. Defect Extent (% LCX)0.00 Stress Defect Extent (% RCA)0.00Rest Defect Extent (% RCA)Rev. Defect Extent (% RCA)0.00 Stress Defect Extent (% CRESCENCIO)13.50Rest Defect Extent (% CRESCENCIO)Rev. Defect Extent (% CRESCENCIO)0.00 Conclusion 1. Baseline electrocardiogram showed an old anteroseptal wall ID. 2. There were no ST segment changes suggestive of myocardial ischemia with pharmacological stress. 3. There is a moderate sized area of perfusion defect with stress over the anteroseptal wall suggest smith of myocardial ischemia. 4. No significant scar. A summed reversibility score is 5. 5. Normal wall motion and wall thickening with an ejection fraction of 60%. 6. Scan indicates moderate risk for future cardiac events.
[2016-10-31] MEDS ORDERED: DOXY100T PO (13:22)
--- NOTE | 2016-10-31 13:25 | PDOC ---
SUBJECTIVE Subjective no further cp OBJECTIVE Vital Signs Vital Signs Date Time Temp Pulse Resp B/P (MAP) Pulse Ox O2 Delivery O2 Flow Rate FiO2 10/31/16 11:56 97.9 68 18 123/72 (89) 92 Nasal Cannula 3.0 97.9 10/31/16 09:37 65 133/66 10/31/16 09:37 65 133/66 10/31/16 08:10 Room Air 10/31/16 07:56 99.0 65 20 133/66 (88) 99 Nasal Cannula 3.0 99.0 10/31/16 03:40 98.4 67 22 167/70 (102) 98 Nasal Cannula 2.0 98.4 10/30/16 23:40 97.9 63 17 126/64 (84) 98 Nasal Cannula 2.0 97.9 10/30/16 21:15 62 124/62 10/30/16 19:30 98.2 62 18 124/62 (82) 96 Room Air 98.2 10/30/16 19:15 Room Air 10/30/16 15:08 98.8 65 18 136/53 (80) 95 Room Air 98.8 I & O Intake and Output 11/01/16 07:00 Intake Total 236 ml Balance 236 ml Intake Oral 236 ml PHYSICAL EXAM Physical Exam no change ASSESSMENT/PLAN Assessment/Plan 1- chest pain with abnormal MPI 2-CAD hx CABG 3-HTN 4- DM II insulin requiring 5-hypothyroidism 6-COPD 7- recent cellulitis with none healing ulcer of right lower ext, improved with doxycycline await C.V input Problems: COMMENT Lab Laboratory Tests Test 10/30/16 16:42 10/30/16 20:44 10/31/16 04:00 10/31/16 07:23 Glucose (Fingerstick) 108 mg/dL (70-99) 130 mg/dL (70-99) 106 mg/dL (70-99) White Blood Count 5.5 x10^3/uL (4.0-11.0) Red Blood Count 5.76 x10^6/uL (4.30-5.70) Hemoglobin 15.2 g/dL (13.0-17.5) Hematocrit 45.9 % (39.0-53.0) Mean Corpuscular Volume 80 fL (79-100) Mean Corpuscular Hemoglobin 26 pg (25-35) Mean Corpuscular Hemoglobin Concent 33 g/dL (31-37) Red Cell Distribution Width 15.4 % (11.5-14.5) Platelet Count 200 x10^3/uL (140-400) Sodium Level 136 mmol/L (136-145) Potassium Level 4.1 mmol/L (3.5-5.1) Chloride Level 99 mmol/L (98-107) Carbon Dioxide Level 31 mmol/L (21-32) Anion Gap 6 (6-14) Blood Urea Nitrogen 13 mg/dL (8-26) Creatinine 1.0 mg/dL (0.7-1.3) Estimated GFR (Cockcroft-Gault) 73.9 Glucose Level 107 mg/dL (70-99) Calcium Level 9.3 mg/dL (8.5-10.1) Test 10/31/16 11:41 Glucose (Fingerstick) 100 mg/dL (70-99) KIANA VELAZQUEZ MD Oct 31, 2016 13:25
--- NOTE | 2016-10-31 14:41 | PDOC ---
PROGRESS NOTES Subjective Subjective No chest pains today. The MPI was completed and it showed: 1. Baseline electrocardiogram showed an old anteroseptal wall DE. 2. There were no ST segment changes suggestive of myocardial ischemia with pharmacological stress. 3. There is a moderate sized area of perfusion defect with stress over the anteroseptal wall suggestive of myocardial ischemia. 4. No significant scar. A summed reversibility score is 5. 5. Normal wall motion and wall thickening with an ejection fraction of 60%. 6. Scan indicates moderate risk for future cardiac events. Objective Objective Vital Signs Date Time Temp Pulse Resp B/P (MAP) Pulse Ox O2 Delivery O2 Flow Rate FiO2 10/31/16 11:56 97.9 68 18 123/72 (89) 92 Nasal Cannula 3.0 97.9 Intake and Output 11/01/16 07:00 Intake Total 436 ml Balance 436 ml Intake Oral 436 ml Physical Exam Physical Exam No significant changes in cardiac exam Assessment Assessment The patient's MPI shows some reversible ischemia. We discussed the situation and it was decided to proceed with a heart catheterization in the morning. Problems Medical Problems: (1) Chest pain Status: Acute Comment Review of Relevant I have reviewed the following items leonardo (where applicable) has been applied. Labs Laboratory Tests Test 10/29/16 16:20 10/29/16 17:02 10/29/16 18:09 10/29/16 18:45 Troponin I Quantitative 0.019 ng/mL (0.000-0.055) Glucose (Fingerstick) 116 mg/dL (70-99) 186 mg/dL (70-99) Urine Collection Type Unknown Urine Color Yellow Urine Clarity Clear Urine pH 5.5 Urine Specific [place] 1.020 Urine Protein Negative mg/dL (NEG-TRACE) Urine Glucose (UA) Negative mg/dL (NEG) Urine Ketones (Stick) Negative mg/dL (NEG) Urine Blood Small (NEG) Urine Nitrite Negative (NEG) Urine Bilirubin Negative (NEG) Urine Urobilinogen Dipstick 0.2 mg/dL (0.2 mg/dL) Urine Leukocyte Esterase Small (NEG) Urine RBC 11-20 /HPF (0-2) Urine WBC 5-10 /HPF (0-4) Urine Squamous Epithelial Cells Few /LPF Urine Bacteria 0 /HPF (0-FEW) Urine Mucus Marked /LPF Test 10/29/16 20:19 10/30/16 01:00 10/30/16 04:45 10/30/16 13:17 Glucose (Fingerstick) 183 mg/dL (70-99) 248 mg/dL (70-99) Troponin I Quantitative 0.033 ng/mL (0.000-0.055) White Blood Count 7.1 x10^3/uL (4.0-11.0) Red Blood Count 5.59 x10^6/uL (4.30-5.70) Hemoglobin 15.1 g/dL (13.0-17.5) Hematocrit 44.8 % (39.0-53.0) Mean Corpuscular Volume 80 fL (79-100) Mean Corpuscular Hemoglobin 27 pg (25-35) Mean Corpuscular Hemoglobin Concent 34 g/dL (31-37) Red Cell Distribution Width 16.2 % (11.5-14.5) Platelet Count 222 x10^3/uL (140-400) Neutrophils (%) (Auto) 58 % (31-73) Lymphocytes (%) (Auto) 25 % (24-48) Monocytes (%) (Auto) 13 % (0-9) Eosinophils (%) (Auto) 3 % (0-3) Basophils (%) (Auto) 1 % (0-3) Neutrophils # (Auto) 4.1 x10^3uL (1.8-7.7) Lymphocytes # (Auto) 1.8 x10^3/uL (1.0-4.8) Monocytes # (Auto) 0.9 x10^3/uL (0.0-1.1) Eosinophils # (Auto) 0.2 x10^3/uL (0.0-0.7) Basophils # (Auto) 0.1 x10^3/uL (0.0-0.2) Sodium Level 135 mmol/L (136-145) Potassium Level 3.8 mmol/L (3.5-5.1) Chloride Level 98 mmol/L (98-107) Carbon Dioxide Level 27 mmol/L (21-32) Anion Gap 10 (6-14) Blood Urea Nitrogen 21 mg/dL (8-26) Creatinine 1.0 mg/dL (0.7-1.3) Estimated GFR (Cockcroft-Gault) 73.9 Glucose Level 115 mg/dL (70-99) Calcium Level 8.8 mg/dL (8.5-10.1) Test 10/30/16 16:42 10/30/16 20:44 10/31/16 04:00 10/31/16 07:23 Glucose (Fingerstick) 108 mg/dL (70-99) 130 mg/dL (70-99) 106 mg/dL (70-99) White Blood Count 5.5 x10^3/uL (4.0-11.0) Red Blood Count 5.76 x10^6/uL (4.30-5.70) Hemoglobin 15.2 g/dL (13.0-17.5) Hematocrit 45.9 % (39.0-53.0) Mean Corpuscular Volume 80 fL (79-100) Mean Corpuscular Hemoglobin 26 pg (25-35) Mean Corpuscular Hemoglobin Concent 33 g/dL (31-37) Red Cell Distribution Width 15.4 % (11.5-14.5) Platelet Count 200 x10^3/uL (140-400) Sodium Level 136 mmol/L (136-145) Potassium Level 4.1 mmol/L (3.5-5.1) Chloride Level 99 mmol/L (98-107) Carbon Dioxide Level 31 mmol/L (21-32) Anion Gap 6 (6-14) Blood Urea Nitrogen 13 mg/dL (8-26) Creatinine 1.0 mg/dL (0.7-1.3) Estimated GFR (Cockcroft-Gault) 73.9 Glucose Level 107 mg/dL (70-99) Calcium Level 9.3 mg/dL (8.5-10.1) Test 10/31/16 11:41 Glucose (Fingerstick) 100 mg/dL (70-99) Laboratory Tests Test 10/30/16 16:42 10/30/16 20:44 10/31/16 04:00 10/31/16 07:23 Glucose (Fingerstick) 108 mg/dL (70-99) 130 mg/dL (70-99) 106 mg/dL (70-99) White Blood Count 5.5 x10^3/uL (4.0-11.0) Red Blood Count 5.76 x10^6/uL (4.30-5.70) Hemoglobin 15.2 g/dL (13.0-17.5) Hematocrit 45.9 % (39.0-53.0) Mean Corpuscular Volume 80 fL (79-100) Mean Corpuscular Hemoglobin 26 pg (25-35) Mean Corpuscular Hemoglobin Concent 33 g/dL (31-37) Red Cell Distribution Width 15.4 % (11.5-14.5) Platelet Count 200 x10^3/uL (140-400) Sodium Level 136 mmol/L (136-145) Potassium Level 4.1 mmol/L (3.5-5.1) Chloride Level 99 mmol/L (98-107) Carbon Dioxide Level 31 mmol/L (21-32) Anion Gap 6 (6-14) Blood Urea Nitrogen 13 mg/dL (8-26) Creatinine 1.0 mg/dL (0.7-1.3) Estimated GFR (Cockcroft-Gault) 73.9 Glucose Level 107 mg/dL (70-99) Calcium Level 9.3 mg/dL (8.5-10.1) Test 10/31/16 11:41 Glucose (Fingerstick) 100 mg/dL (70-99) Microbiology 10/29/16 Urine Culture - Final, Complete 10/29/16 Urine Culture Result 1 (RAINER) - Final, Complete Medications Current Medications Aspirin (Children'S Aspirin) 324 mg 1X ONCE PO Last administered on 10/29/16 11:02; Start 10/29/16 at 10:45; Stop 10/29/16 at 10:46; Status DC Nitroglycerin (Nitrostat) 0.4 mg PRN Q5MIN PRN SL CP RATING > 1/10; Start 10/29 at 10:45; Stop 10/30/16 at 10:44; Status DC Enoxaparin Sodium (Lovenox Per Pharmacy Treatment Dosing) 1 each PRN DAILY PRN MC SEE COMMENTS; Start 10/29/16 at 12:00 Enoxaparin Sodium (Lovenox 120mg Syringe) 110 mg Q12HR SQ Last administered on 10/31/16 09:38; Start 10/29/16 at 12:00 Ondansetron HCl (Zofran) 4 mg PRN Q8HRS PRN IV NAUSEA/VOMITING; Start 10/29/16 at 12:30; Stop 10/30/16 at 12:29; Status DC Morphine Sulfate 2 mg PRN Q2HR PRN IV PAIN; Start 10/29/16 at 12:30; Stop 10/30 at 12:29; Status DC Nitroglycerin (Nitrostat) 0.4 mg PRN Q5MIN PRN SL CHEST PAIN; Start 10/29/16 at 12:30; Stop 10/30/16 at 12:29; Status Cancel Dextrose (Dextrose 50%-Water Syringe) 12.5 gm PRN Q15MIN PRN IV SEE COMMENTS; Start 10/29/16 at 14:30 Amlodipine Besylate (Norvasc) 5 mg DAILY PO Last administered on 10/31/16 09: 37; Start 10/30/16 at 09:00 Aspirin (David Aspirin) 325 mg DAILY PO Last administered on 10/31/16 09:36; Start 10/30/16 at 09:00 Atorvastatin Calcium (Lipitor) 10 mg DAILY PO ; Start 10/30/16 at 09:00; Stop at 13:45; Status DC Bupropion HCl (Wellbutrin) 300 mg DAILY PO Last administered on 10/31/16 09:35 ; Start 10/30/16 at 09:00 Clopidogrel Bisulfate (Plavix) 75 mg DAILY PO Last administered on 10/31/16 09 :35; Start 10/30/16 at 09:00 Furosemide (Lasix) 40 mg DAILY PO Last administered on 10/31/16 09:37; Start 10/30/16 at 09:00 Levothyroxine Sodium (Synthroid) 150 mcg DAILY06 PO Last administered on 06:23; Start 10/30/16 at 06:00 Metoprolol Tartrate (Lopressor) 50 mg BID PO Last administered on 10/31/16 09: 37; Start 10/29/16 at 21:00 Acetaminophen (Tylenol) 500 mg PRN Q6HRS PRN PO PAIN; Start 10/29/16 at 17:15 Non-Formulary Medication 12 mg DAILY PO ; Start 10/30/16 at 09:00; Status UNV Vitamin D (Vitamin D3) 2,000 unit DAILY PO Last administered on 10/31/16 09:36 ; Start 10/30/16 at 09:00 Non-Formulary Medication 1,000 mg DAILY PO ; Start 10/30/16 at 09:00; Status UNV Multivitamins (Thera M Plus) 1 tab DAILY PO Last administered on 10/31/16 09: 36; Start 10/30/16 at 09:00 Insulin Detemir (Levemir) 40 units BID SQ Last administered on 10/30/16 21:20 ; Start 10/29/16 at 21:00 Non-Formulary Medication 1,000 mg DAILY PO ; Start 10/30/16 at 09:00; Status UNV Fish Oil (Fish Oil) 1,000 mg DAILY PO Last administered on 10/30/16 13:14; Start 10/29/16 at 18:00 Potassium Chloride (Klor-Con) 20 meq BIDWMEALS PO Last administered on 09:36; Start 10/29/16 at 18:00 Non-Formulary Medication 100 mg DAILY PO ; Start 10/30/16 at 09:00; Status UNV Vitamin B Complex (Javier B) 1 tab DAILY PO Last administered on 10/31/16 09:36 ; Start 10/29/16 at 18:00 Bupropion HCl (Wellbutrin) 300 mg DAILY PO ; Start 10/30/16 at 09:00; Status Cancel Insulin Aspart (NovoLOG) 20 units TIDAC SQ Last administered on 10/31/16 12:34 ; Start 10/29/16 at 18:00 Hydrocortisone (Cortef) 10 mg BID92 PO ; Start 10/30/16 at 09:00; Stop 10/30/16 at 09:00; Status DC Hydrocortisone (Cortef) 10 mg BID92 PO Last administered on 10/31/16 09:35; Start 10/29/16 at 21:00 Doxycycline Hyclate (Vibra-Tab) 100 mg BID PO Last administered on 10/31/16 09 :36; Start 10/30/16 at 11:00 Regadenoson (Lexiscan) 0.4 mg 1X ONCE IV ; Start 10/30/16 at 11:15; Stop at 11:16; Status DC Atorvastatin Calcium (Lipitor) 10 mg HS PO Last administered on 10/30/16 21:14 ; Start 10/30/16 at 21:00 Active Scripts Active Reported Hydrocortisone 10 Mg Tablet 10 Mg PO BID Humalog (Insulin Lispro) 100 Unit/1 Ml Insuln.pen 20 Unit SQ TIDAC Tylophen (Acetaminophen) 500 Mg Capsule 500 Mg PO PRN Q4-6HRS PRN Astaxanthin 4 Mg Capsule 12 Mg PO DAILY Msm (Methylsulfonylmethane) 1,000 Mg Capsule 1,000 Mg PO DAILY Coconut Oil 1,000 Mg Capsule 1,000 Mg PO DAILY D3-2000 (Cholecalciferol (Vitamin D3)) 2,000 Unit Capsule 2,000 Unit PO DAILY Coq-10 (Ubidecarenone) 100 Mg Capsule 100 Mg PO DAILY Super B Complex (Vitamin B Complex & Vit C No.4) 150 Mg Tablet 150 Mg PO DAILY Adult Multivitamin Gummies (Folic Acid/Multivits-Min) 200 Mcg Tab.chew 200 Mcg PO DAILY Fish Oil 1,200 Mg Softgel ([place]lock-3 Fatty Acids/Fish Oil) 1 Each Capsule 1 Each PO DAILY Aspirin 325 Mg Tablet 1 Tab PO DAILY Clopidogrel (Clopidogrel Bisulfate) 75 Mg Tablet 1 Tab PO DAILY Bupropion Hcl 100 Mg Tablet 300 Mg PO DAILY Atorvastatin Calcium 10 Mg Tablet 1 Tab PO DAILY Lasix (Furosemide) 40 Mg Tablet 1 Tab PO DAILY Potassium Chloride 20 Meq Tablet.er 20 Meq PO BID Metoprolol Tartrate 50 Mg Tablet 1 Tab PO BID Amlodipine Besylate 5 Mg Tablet 5 Mg PO DAILY Levothyroxine Sodium 150 Mcg Tablet 1 Tab PO DAILY Relion Novolin 70-30 Vial (Hum Insulin Nph/Reg Insulin Hm) 100 Unit/1 Ml Vial 40 Unit SQ BID Vitals/I & O Vital Sign - Last 24 Hours 10/30/16 10/30/16 10/30/16 10/30/16 15:08 19:15 19:30 21:15 Temp 98.8 98.2 98.8 98.2 Pulse 65 62 62 Resp 18 18 B/P (MAP) 136/53 (80) 124/62 (82) 124/62 Pulse Ox 95 96 O2 Delivery Room Air Room Air Room Air 10/30/16 10/31/16 10/31/16 10/31/16 23:40 03:40 07:56 08:10 Temp 97.9 98.4 99.0 97.9 98.4 99.0 Pulse 63 67 65 Resp 17 22 20 B/P (MAP) 126/64 (84) 167/70 (102) 133/66 (88) Pulse Ox 98 98 99 O2 Delivery Nasal Cannula Nasal Cannula Nasal Cannula Room Air O2 Flow Rate 2.0 2.0 3.0 10/31/16 10/31/16 10/31/16 09:37 09:37 11:56 Temp 97.9 97.9 Pulse 65 65 68 Resp 18 B/P (MAP) 133/66 133/66 123/72 (89) Pulse Ox 92 O2 Delivery Nasal Cannula O2 Flow Rate 3.0 Intake and Output 10/31/16 10/31/16 11/01/16 15:00 23:00 07:00 Intake Total 436 ml Balance 436 ml MANUEL MIKE MD Oct 31, 2016 14:41
--- NOTE | 2016-10-31 14:46 | PDOC ---
MODERATE SEDATION ASSESSMENT RISKS/ALTERNATIVES Risks/Alternatives Risks and alternatives of this type of sedation and procedure discussed with: RISK/ALTERNATIVES: Patient H & P ON CHART H & P H & P on chart and reviewed for co-morbid conditions and appropriate labs. H&P ON CHART: Yes STATUS PREG STATUS ASSESSED: Yes MEDS/ALLERGIES REVIEWED Meds/Allergies Reviewed Medications and Allergies including time and route of recently administered narcotics and sedatives. MEDS/ALLERGIES REVIEWED: Yes ASA RATING ASA RATING: II AIRWAY ASSESSMENT Airway Assessment Airway patency, oral function limitations, presence of caps, crowns, dentures, partials, and ability to extend neck assessed. AIRWAY ASSESSMENT: Yes MALLAMPATI SCORE MALLAMPATI SCORE: II PRE-SEDATION ASSESSMENT PRE-SEDATION ASSESSMENT: Yes MANUEL MIKE MD Oct 31, 2016 14:46
[2016-10-31 15:00] VITALS: BP 124/43
[2016-10-31 19:55] VITALS: BP 133/58
[2016-10-31] MEDS: ATORVASTATIN CALCIUM 10 MG TABLET. PO SCH (21:15)
[2016-10-31 23:40] VITALS: BP 116/70
[2016-11-01] VITALS (16 sets, daily range): BP systolic 115–155; BP diastolic 52–79
[2016-11-01] MEDS: LEVOTHYROXINE 150 MCG TABLET PO SCH (06:40)
[2016-11-01] MEDS: INSULIN ASPART 300 UNITS/3 ML INSULN.PEN SQ SCH ×3 (07:30→16:30)
[2016-11-01] MEDS ORDERED: IV 1/2 NORMAL SALINE 1,000 ML IV SCH (08:00)
--- NOTE | 2016-11-01 08:06 | PDOC ---
Provider Note Provider Note heart cath today, no new sxs, vss NEEMA ZAZUETA MD Nov 01, 2016 08:06
[2016-11-01] MEDS: HYDROCORTISONE 10 MG TABLET PO SCH ×2 (08:18→14:00)
[2016-11-01] MEDS: POTASSIUM CHLORIDE 20 MEQ TABLET.ER. PO SCH ×2 (08:18→16:16)
[2016-11-01] MEDS: MULTIVITAMIN with MINERAL TABLET. PO SCH (08:18)
[2016-11-01] MEDS: CHOLECALCIFEROL (VITAMIN D3) 1,000 UNIT TABLET PO SCH (08:19)
[2016-11-01] MEDS: CLOPIDOGREL BISULFATE 75 MG TABLET PO SCH (08:19)
[2016-11-01] MEDS: METOPROLOL TART IMMED RELEASE 50 MG TABLET. PO SCH ×2 (08:20→20:22)
[2016-11-01] MEDS: DOXYCYCLINE HYCLATE 100 MG TABLET PO SCH ×2 (08:21→20:21)
[2016-11-01] MEDS: ASPIRIN 325 MG TABLET PO SCH (08:21)
[2016-11-01] MEDS: amLODIPine BESYLATE 5 MG TABLET PO SCH (08:21)
[2016-11-01] MEDS: VITAMIN B COMPLEX TABLET. PO SCH (08:21)
[2016-11-01] MEDS: buPROPion 100 MG TABLET PO SCH (08:21)
[2016-11-01] MEDS: OMEGA-3 FATTY ACIDS/FISH OIL 1,000 MG CAPSULE. PO SCH (09:00)
[2016-11-01] MEDS: INSULIN DETEMIR 300 UNITS/3 ML INSULN.PEN. SQ SCH ×2 (09:00→23:06)
[2016-11-01] MEDS: FUROSEMIDE 40 MG TABLET. PO SCH (09:00)
[2016-11-01] MEDS ORDERED: LIDOCAINE 2% 20 ML VIAL. ONE (12:24)
[2016-11-01] MEDS ORDERED: IOHEXOL 300 MG/ML 100ML VIAL. ONE (12:24)
[2016-11-01] MEDS ORDERED: fentaNYL PF VIAL 100 MCG/2 ML VIAL ONE ×2 (12:54→13:01)
[2016-11-01] MEDS ORDERED: MIDAZOLAM HCL/PF 2 MG/2 ML VIAL. ONE ×2 (12:54→13:01)
[2016-11-01] MEDS ORDERED: fentaNYL PF VIAL 100 MCG/2 ML VIAL IV ONE (13:15)
[2016-11-01] MEDS ORDERED: IOHEXOL 300 MG/ML 100ML VIAL. IART ONE (13:15)
[2016-11-01] MEDS ORDERED: LIDOCAINE 2% 20 ML VIAL. IJ ONE (13:15)
[2016-11-01] MEDS ORDERED: MIDAZOLAM HCL/PF 2 MG/2 ML VIAL. IV ONE (13:15)
[2016-11-01] MEDS ORDERED: TIROFIBAN 12.5MG -0.9% NS 250 ML IV ONE (13:28)
[2016-11-01] MEDS ORDERED: HEPARIN for IV BOLUS 10,000 UNIT/10 ML VIAL. ONE (13:28)
[2016-11-01] MEDS ORDERED: CONTRAST GIVEN MC PRN (13:30)
[2016-11-01] MEDS ORDERED: HEPARIN for IV BOLUS 10,000 UNIT/10 ML VIAL. IV ONE (13:45)
[2016-11-01] MEDS ORDERED: HEPARIN 25,000UTS/500ML PREMIX 500 ML IV ONE ×2 (13:46→14:15)
[2016-11-01] MEDS ORDERED: CLOPIDOGREL BISULFATE 75 MG TABLET ONE (13:47)
[2016-11-01] MEDS ORDERED: CLOPIDOGREL BISULFATE 75 MG TABLET PO ONE (14:15)
[2016-11-01] MEDS: TIROFIBAN 12.5MG -0.9% NS 250 ML IV PRN ×2 (14:40→22:58)
[2016-11-01] MEDS ORDERED: CYCLOBENZAPRINE 10 MG TABLET. PO PRN (15:00)
[2016-11-01] MEDS ORDERED: fentaNYL PF VIAL 100 MCG/2 ML VIAL IV PRN ×3 (15:00→15:15)
--- NOTE | 2016-11-01 15:06 | CARD ---
APPROVED REPORT Procedure(s) performed: MODERATE SEDATION: 63 MIN HISTORY The patient is a 71 year-old male with a history of : previous [place], previous CHF, coronary artery dise ase, previous PCI (The PCI date was ), hypertension, previous CABG (The CABG date was ), dyslipidemia . INDICATION The indication(s) include : unstable angina , non-STEMI , chest pain. CASE TECHNIQUE The patient was brought electively into the cardiac catheterization lab. A timeout was performed conf irming the patient's name, date of , procedure, and site of procedure. All necessary parties wer e wearing the appropriate personal protective equipment and radiation monitoring devices. After expla ining the risks and benefits of the procedure, informed consent was obtained.(See nursing notes for m edications administered). The right groin was sterilely prepped and draped. The right femoral groin w as infiltrated with 2% Lidocaine subcutaneous anesthesia. During this case, Fluoroscopy and low osmol ar contrast were used for imaging. A sheath was inserted into the right femoral artery without diffic ulty. Coronary angiography was performed using coronary diagnostic catheters. The left coronary syste m was accessed and visualized with a Diagnostic catheter. The right coronary system was accessed and visualized with a Diagnostic catheter. The left internal mammary artery was accessed and visualized w ith a Diagnostic catheter. The saphenous vein graft was accessed and visualized with a Diagnostic cat heter. The saphenous vein graft was accessed and visualized with a Diagnostic catheter. Coronary Angiography The patient's coronary anatomy is right dominant. The left main coronary artery is a medium size vessel with intimal irregularities. There is a 40% irma nosis in the proximal segment. The left main bifurcates to the left anterior descending and circumfle x. The left anterior descending artery is a medium size vessel with stenosis. There is a 100% stenosis i n the mid segment. inside the stent The first diagonal branch is a medium size vessel with intimal ir regularities. The second diagonal branch is a small size vessel with moderate diffused disease. The circumflex artery is a medium size vessel with stenosis. There is a 55% stenosis in the mid segme nt. The first obtuse marginal branch is a small size vessel with mild-moderate diffused disease. The second obtuse marginal branch is a small size vessel with mild-moderate diffused disease. The right coronary artery is a large size vessel with stenosis. There is a 99% stenosis in the distal segment. at the end of a stent The right posterior descending artery is a medium size vessel with mi ld diffused disease. The right posterolateral branch is a small size vessel with mild-moderate diffus ed disease. The left internal mammary artery to the mid left anterior descending artery segment is patent small c aliber graft but normal flow. The saphenous vein graft to the first diagonal branch segment is patent . The saphenous vein graft to the first right posterior lateral segment is patent not a lot of flow from the SVG graft to the PDA. In view of the findings I felt that we should restent the RCA but sinc e the MEMBRENO graft to the LAD seems to have acceptable flow I do not think that the LAD stent needs to be reopened. PCI Technique Lesion Anticoagulation was achieved with Heparin. Patient was preloaded with Plavix. Percutaneous coronary i ntervention was performed on the distal right coronary artery. The lesion stenosis prior to intervent ion was 99% with EDILSON flow. A Guide Catheter was used to engage the RCA ostium. STENT DEPLOYMENT A drug-eluting stent 3.0 mm X 23 mm was inserted and inflated up to 12atm for 20seconds. POST STENT DEPLOYMENT BALLOON DILATION A Balloon catheter 3.0 mm was inserted and inflated up to 16atm for 20seconds. Repeat angiography rev ealed the following post-dilatation results: no significant residual disease with excellent flow thro ugh the area. Final angiography reveals 0 % stenosis with EDILSON flow. COMMENTS The pt tolerated the procedure well. Conclusion Pt with unstable angina and had a succesfull stenting of the RCA with a KARIN stent. Will keep the pt on Aggristat and Heparin until AM and then DC the drips and the groin lines.
--- NOTE | 2016-11-01 15:10 | PDOC4 ---
PROCEDURE Procedure [facility] [address] [place] [address] IMAGING REPORT Signed PATIENT: LINDA DAVID ACCOUNT: [id number] : 1945 LOCATION: [address] [place] [address] AGE: 71 SEX: M EXAM STATUS: ADM IN ORD. PHYSICIAN: MANUEL MIKE MD REASON: chest pain, cad PROCEDURE: Coronaries By-Pass Graft APPROVED REPORT Procedure(s) performed: MODERATE SEDATION: 63 MIN HISTORY The patient is a 71 year-old male with a history of : previous [place], previous CHF , coronary artery disease, previous PCI (The PCI date was ), hypertension, previous CABG (The CABG date was ), dyslipidemia. INDICATION The indication(s) include : unstable angina , non-STEMI , chest pain. CASE TECHNIQUE The patient was brought electively into the cardiac catheterization lab. A timeout was performed confirming the patient's name, date of , procedure, and site of procedure. All necessary parties were wearing the appropriate personal protective equipment and radiation monitoring devices. After explaining the risks and benefits of the procedure, informed consent was obtained.(See nursing notes for medications administered). The right groin was sterilely prepped and draped. The right femoral groin was infiltrated with 2% Lidocaine subcutaneous anesthesia. During this case, Fluoroscopy and low osmolar contrast were used for imaging. A sheath was inserted into the right femoral artery without difficulty. Coronary angiography was performed using coronary diagnostic catheters. The left coronary system was accessed and visualized with a Diagnostic catheter. The right coronary system was accessed and visualized with a Diagnostic catheter. The left internal mammary artery was accessed and visualized with a Diagnostic catheter. The saphenous vein graft was accessed and visualized with a Diagnostic catheter. The saphenous vein graft was accessed and visualized with a Diagnostic catheter. Coronary Angiography The patient's coronary anatomy is right dominant. The left main coronary artery is a medium size vessel with intimal irregularities. There is a 40% stenosis in the proximal segment. The left main bifurcates to the left anterior descending and circumflex. The left anterior descending artery is a medium size vessel with stenosis. There is a 100% stenosis in the mid segment. inside the stent The first diagonal branch is a medium size vessel with intimal irregularities. The second diagonal branch is a small size vessel with moderate diffused disease. The circumflex artery is a medium size vessel with stenosis. There is a 55% stenosis in the mid segment. The first obtuse marginal branch is a small size vessel with mild-moderate diffused disease. The second obtuse marginal branch is a small size vessel with mild-moderate diffused disease. The right coronary artery is a large size vessel with stenosis. There is a 99% stenosis in the distal segment. at the end of a stent The right posterior descending artery is a medium size vessel with mild diffused disease. The right posterolateral branch is a small size vessel with mild-moderate diffused disease. The left internal mammary artery to the mid left anterior descending artery segment is patent small caliber graft but normal flow. The saphenous vein graft to the first diagonal branch segment is patent . The saphenous vein graft to the first right posterior lateral segment is patent not a lot of flow from the SVG graft to the PDA. In view of the findings I felt that we should restent the RCA but since the MEMBRENO graft to the LAD seems to have acceptable flow I do not think that the LAD stent needs to be reopened. PCI Technique Lesion Anticoagulation was achieved with Heparin. Patient was preloaded with Plavix. Percutaneous coronary intervention was performed on the distal right coronary artery. The lesion stenosis prior to intervention was 99% with EDILSON flow. A Guide Catheter was used to engage the RCA ostium. STENT DEPLOYMENT A drug-eluting stent 3.0 mm X 23 mm was inserted and inflated up to 12atm for 20seconds. POST STENT DEPLOYMENT BALLOON DILATION A Balloon catheter 3.0 mm was inserted and inflated up to 16atm for 20seconds. Repeat angiography revealed the following post-dilatation results: no significant residual disease with excellent flow through the area. Final angiography reveals 0 % stenosis with EDILSON flow. COMMENTS The pt tolerated the procedure well. Conclusion Pt with unstable angina and had a succesfull stenting of the RCA with a KARIN stent. Will keep the pt on Aggristat and Heparin until AM and then DC the drips and the groin lines. DICTATED and SIGNED BY: MANUEL MIKE MD DATE: 11/01/16 9978 CC: NEEMA ZAZUETA MD; MANUEL MIKE MD ~ MANUEL MIKE MD Nov 01, 2016 15:10
[2016-11-01] MEDS: IV 1/2 NORMAL SALINE 1,000 ML IV SCH ×2 (15:11→22:58)
[2016-11-01] MEDS ORDERED: NITROGLYCERIN SUBLINGUAL 0.4 MG BOTTLE OF 25. SL PRN (15:15)
[2016-11-01] MEDS ORDERED: MIDAZOLAM HCL/PF 2 MG/2 ML VIAL. IV PRN (15:15)
[2016-11-01] MEDS ORDERED: 0.9 % SODIUM CHLORIDE 10 ML DISP.SYRIN. IV PRN (15:15)
[2016-11-01] MEDS ORDERED: ACETAMINOPHEN 325 MG TABLET. PO PRN (15:15)
[2016-11-01] MEDS ORDERED: TIROFIBAN 12.5MG -0.9% NS 250 ML IV PRN (15:15)
[2016-11-01] MEDS ORDERED: LABETALOL 20 MG/4 ML DISP.SYRIN. IVP PRN (18:15)
[2016-11-01] MEDS: oxyCODONE/APAP 5/325 1 TAB TABLET PO PRN (18:24)
[2016-11-01] MEDS: ATORVASTATIN CALCIUM 10 MG TABLET. PO SCH (20:21)
[2016-11-01] MEDS: diazePAM 5 MG TABLET PO PRN (20:51)
[2016-11-02 03:50] VITALS: BP 139/55
[2016-11-02 06:10] LABS: CALCIUM 8.3 mg/dL (8.5-10.1); CREATININE 0.9 mg/dL (0.7-1.3); GFR 83.4; POTASSIUM 4.4 mmol/L (3.5-5.1)
[2016-11-02 06:18] LABS: HEMATOCRIT 41.8 % (39.0-53.0); HEMOGLOBIN 14.1 g/dL (13.0-17.5); RED BLOOD COUNT 5.29 x10^6/uL (4.30-5.70); RED CELL DISTRIBUTION WIDTH 15.6 % (11.5-14.5); WHITE BLOOD COUNT 6.7 x10^3/uL (4.0-11.0)
[2016-11-02] MEDS: LEVOTHYROXINE 150 MCG TABLET PO SCH (06:19)
[2016-11-02] MEDS: oxyCODONE/APAP 5/325 1 TAB TABLET PO PRN ×3 (06:20→15:15)
[2016-11-02] MEDS: diazePAM 5 MG TABLET PO PRN ×2 (06:20→11:20)
[2016-11-02 07:19] VITALS: BP 125/49
[2016-11-02] MEDS: INSULIN ASPART 300 UNITS/3 ML INSULN.PEN SQ SCH ×3 (07:30→17:45)
[2016-11-02] MEDS ORDERED: CLOPIDOGREL BISULFATE 75 MG TABLET PO SCH (08:00)
--- NOTE | 2016-11-02 08:42 | PDOC ---
Provider Note Provider Note sleeping, no new sxs- stent in, now asa/plavix- dc plan per dr knight, rest of meds same NEEMA ZAZUETA MD Nov 02, 2016 08:42
[2016-11-02] MEDS: METOPROLOL TART IMMED RELEASE 50 MG TABLET. PO SCH ×2 (09:00→20:46)
[2016-11-02] MEDS: amLODIPine BESYLATE 5 MG TABLET PO SCH (09:00)
[2016-11-02] MEDS: FUROSEMIDE 40 MG TABLET. PO SCH (09:00)
[2016-11-02] MEDS: INSULIN DETEMIR 300 UNITS/3 ML INSULN.PEN. SQ SCH ×2 (09:00→20:47)
[2016-11-02] MEDS: OMEGA-3 FATTY ACIDS/FISH OIL 1,000 MG CAPSULE. PO SCH (09:00)
[2016-11-02 10:46] VITALS: BP 129/61
[2016-11-02] MEDS: buPROPion 100 MG TABLET PO SCH (12:08)
[2016-11-02] MEDS: ASPIRIN 325 MG TABLET PO SCH (12:08)
[2016-11-02] MEDS: DOXYCYCLINE HYCLATE 100 MG TABLET PO SCH ×2 (12:09→20:46)
[2016-11-02] MEDS: CLOPIDOGREL BISULFATE 75 MG TABLET PO SCH (12:09)
[2016-11-02] MEDS: HYDROCORTISONE 10 MG TABLET PO SCH ×2 (12:09→15:14)
[2016-11-02] MEDS: CHOLECALCIFEROL (VITAMIN D3) 1,000 UNIT TABLET PO SCH (12:10)
[2016-11-02] MEDS: POTASSIUM CHLORIDE 20 MEQ TABLET.ER. PO SCH ×2 (12:10→17:00)
[2016-11-02] MEDS: MULTIVITAMIN with MINERAL TABLET. PO SCH (12:11)
[2016-11-02] MEDS: VITAMIN B COMPLEX TABLET. PO SCH (12:15)
[2016-11-02 14:46] VITALS: BP 113/64
--- NOTE | 2016-11-02 17:29 | PDOC ---
PROGRESS NOTES Subjective Subjective No chest pains. The groin lines were DC'd earlier today. Objective Objective Vital Signs Date Time Temp Pulse Resp B/P (MAP) Pulse Ox O2 Delivery O2 Flow Rate FiO2 11/02/16 16:15 18 97 Nasal Cannula 2.0 11/02/16 14:46 97.7 68 113/64 (80) 97.7 Intake and Output 11/03/16 07:00 Intake Total 1010 ml Output Total 1000 ml Balance 10 ml Intake Oral 1010 ml Output Urine Total 1000 ml Physical Exam Physical Exam No significant changes and cardiac exam Assessment Assessment Patient stable. Continue anticoagulation. Home in a.m. Problems Medical Problems: (1) Chest pain Status: Acute Comment Review of Relevant I have reviewed the following items leonardo (where applicable) has been applied. Labs Laboratory Tests Test 10/31/16 20:52 11/01/16 07:22 11/01/16 11:21 11/01/16 13:37 Glucose (Fingerstick) 146 mg/dL (70-99) 131 mg/dL (70-99) 129 mg/dL (70-99) Activated Clotting Time 387 sec (92-181) Test 11/01/16 17:07 11/01/16 20:57 11/02/16 05:30 11/02/16 07:23 Glucose (Fingerstick) 193 mg/dL (70-99) 153 mg/dL (70-99) 103 mg/dL (70-99) White Blood Count 6.7 x10^3/uL (4.0-11.0) Red Blood Count 5.29 x10^6/uL (4.30-5.70) Hemoglobin 14.1 g/dL (13.0-17.5) Hematocrit 41.8 % (39.0-53.0) Mean Corpuscular Volume 79 fL (79-100) Mean Corpuscular Hemoglobin 27 pg (25-35) Mean Corpuscular Hemoglobin Concent 34 g/dL (31-37) Red Cell Distribution Width 15.6 % (11.5-14.5) Platelet Count 209 x10^3/uL (140-400) Sodium Level 135 mmol/L (136-145) Potassium Level 4.4 mmol/L (3.5-5.1) Chloride Level 100 mmol/L (98-107) Carbon Dioxide Level 26 mmol/L (21-32) Anion Gap 9 (6-14) Blood Urea Nitrogen 13 mg/dL (8-26) Creatinine 0.9 mg/dL (0.7-1.3) Estimated GFR (Cockcroft-Gault) 83.4 Glucose Level 108 mg/dL (70-99) Calcium Level 8.3 mg/dL (8.5-10.1) Test 11/02/16 09:13 11/02/16 11:46 11/02/16 16:38 Activated Clotting Time 135 sec (92-181) Glucose (Fingerstick) 163 mg/dL (70-99) 132 mg/dL (70-99) Laboratory Tests Test 11/01/16 20:57 11/02/16 05:30 11/02/16 07:23 11/02/16 09:13 Glucose (Fingerstick) 153 mg/dL (70-99) 103 mg/dL (70-99) White Blood Count 6.7 x10^3/uL (4.0-11.0) Red Blood Count 5.29 x10^6/uL (4.30-5.70) Hemoglobin 14.1 g/dL (13.0-17.5) Hematocrit 41.8 % (39.0-53.0) Mean Corpuscular Volume 79 fL (79-100) Mean Corpuscular Hemoglobin 27 pg (25-35) Mean Corpuscular Hemoglobin Concent 34 g/dL (31-37) Red Cell Distribution Width 15.6 % (11.5-14.5) Platelet Count 209 x10^3/uL (140-400) Sodium Level 135 mmol/L (136-145) Potassium Level 4.4 mmol/L (3.5-5.1) Chloride Level 100 mmol/L (98-107) Carbon Dioxide Level 26 mmol/L (21-32) Anion Gap 9 (6-14) Blood Urea Nitrogen 13 mg/dL (8-26) Creatinine 0.9 mg/dL (0.7-1.3) Estimated GFR (Cockcroft-Gault) 83.4 Glucose Level 108 mg/dL (70-99) Calcium Level 8.3 mg/dL (8.5-10.1) Activated Clotting Time 135 sec (92-181) Test 11/02/16 11:46 11/02/16 16:38 Glucose (Fingerstick) 163 mg/dL (70-99) 132 mg/dL (70-99) Microbiology 10/29/16 Urine Culture - Final, Complete 10/29/16 Urine Culture Result 1 (RAINER) - Final, Complete Medications Current Medications Aspirin (Children'S Aspirin) 324 mg 1X ONCE PO Last administered on 10/29/16 11:02; Start 10/29/16 at 10:45; Stop 10/29/16 at 10:46; Status DC Nitroglycerin (Nitrostat) 0.4 mg PRN Q5MIN PRN SL CP RATING > 1/10; Start 10/29 at 10:45; Stop 10/30/16 at 10:44; Status DC Enoxaparin Sodium (Lovenox Per Pharmacy Treatment Dosing) 1 each PRN DAILY PRN MC SEE COMMENTS; Start 10/29/16 at 12:00; Stop 11/02/16 at 07:58; Status DC Enoxaparin Sodium (Lovenox 120mg Syringe) 110 mg Q12HR SQ Last administered on 10/31/16 21:19; Start 10/29/16 at 12:00; Stop 11/01/16 at 15:31; Status DC Ondansetron HCl (Zofran) 4 mg PRN Q8HRS PRN IV NAUSEA/VOMITING; Start 10/29/16 at 12:30; Stop 10/30/16 at 12:29; Status DC Morphine Sulfate 2 mg PRN Q2HR PRN IV PAIN; Start 10/29/16 at 12:30; Stop 10/30 at 12:29; Status DC Nitroglycerin (Nitrostat) 0.4 mg PRN Q5MIN PRN SL CHEST PAIN; Start 10/29/16 at 12:30; Stop 10/30/16 at 12:29; Status Cancel Dextrose (Dextrose 50%-Water Syringe) 12.5 gm PRN Q15MIN PRN IV SEE COMMENTS; Start 10/29/16 at 14:30 Amlodipine Besylate (Norvasc) 5 mg DAILY PO Last administered on 11/01/16 08: 21; Start 10/30/16 at 09:00 Aspirin (David Aspirin) 325 mg DAILY PO Last administered on 11/02/16 12:08; Start 10/30/16 at 09:00 Atorvastatin Calcium (Lipitor) 10 mg DAILY PO ; Start 10/30/16 at 09:00; Stop at 13:45; Status DC Bupropion HCl (Wellbutrin) 300 mg DAILY PO Last administered on 11/02/16 12:08 ; Start 10/30/16 at 09:00 Clopidogrel Bisulfate (Plavix) 75 mg DAILY PO Last administered on 11/02/16 12 :09; Start 10/30/16 at 09:00 Furosemide (Lasix) 40 mg DAILY PO Last administered on 10/31/16 09:37; Start 10/30/16 at 09:00 Levothyroxine Sodium (Synthroid) 150 mcg DAILY06 PO Last administered on 06:19; Start 10/30/16 at 06:00 Metoprolol Tartrate (Lopressor) 50 mg BID PO Last administered on 11/01/16 20: 22; Start 10/29/16 at 21:00 Acetaminophen (Tylenol) 500 mg PRN Q6HRS PRN PO PAIN; Start 10/29/16 at 17:15; Status Cancel Non-Formulary Medication 12 mg DAILY PO ; Start 10/30/16 at 09:00; Status UNV Vitamin D (Vitamin D3) 2,000 unit DAILY PO Last administered on 11/02/16 12:10 ; Start 10/30/16 at 09:00 Non-Formulary Medication 1,000 mg DAILY PO ; Start 10/30/16 at 09:00; Status UNV Multivitamins (Thera M Plus) 1 tab DAILY PO Last administered on 11/02/16 12: 11; Start 10/30/16 at 09:00 Insulin Detemir (Levemir) 40 units BID SQ Last administered on 11/01/16 23:06 ; Start 10/29/16 at 21:00 Non-Formulary Medication 1,000 mg DAILY PO ; Start 10/30/16 at 09:00; Status UNV Fish Oil (Fish Oil) 1,000 mg DAILY PO Last administered on 10/30/16 13:14; Start 10/29/16 at 18:00 Potassium Chloride (Klor-Con) 20 meq BIDWMEALS PO Last administered on 12:10; Start 10/29/16 at 18:00 Non-Formulary Medication 100 mg DAILY PO ; Start 10/30/16 at 09:00; Status UNV Vitamin B Complex (Javier B) 1 tab DAILY PO Last administered on 11/02/16 12:15 ; Start 10/29/16 at 18:00 Bupropion HCl (Wellbutrin) 300 mg DAILY PO ; Start 10/30/16 at 09:00; Status Cancel Insulin Aspart (NovoLOG) 20 units TIDAC SQ Last administered on 11/02/16 12:27 ; Start 10/29/16 at 18:00 Hydrocortisone (Cortef) 10 mg BID92 PO ; Start 10/30/16 at 09:00; Stop 10/30/16 at 09:00; Status DC Hydrocortisone (Cortef) 10 mg BID92 PO Last administered on 11/02/16 15:14; Start 10/29/16 at 21:00 Doxycycline Hyclate (Vibra-Tab) 100 mg BID PO Last administered on 11/02/16 12 :09; Start 10/30/16 at 11:00 Regadenoson (Lexiscan) 0.4 mg 1X ONCE IV ; Start 10/30/16 at 11:15; Stop at 11:16; Status DC Atorvastatin Calcium (Lipitor) 10 mg HS PO Last administered on 11/01/16 20:21 ; Start 10/30/16 at 21:00 Sodium Chloride 1,000 ml @ 60 mls/hr [id number] IV Last administered on 08:00; Start 11/01/16 at 08:00; Stop 11/01/16 at 18:00; Status DC Regadenoson (Lexiscan) 0.4 mg STK-MED ONCE IV ; Start 10/30/16 at 11:10; Stop at 09:36; Status DC Lidocaine HCl 20 ml STK-MED ONCE .ROUTE ; Start 11/01/16 at 12:24; Stop at 12:25; Status DC Heparin Sodium/ Sodium Chloride 500 ml @ As Directed STK-MED ONCE .ROUTE ; Start 11/01/16 at 12:24; Stop 11/01/16 at 12:25; Status DC Iohexol (Omnipaque 300 Mg/ml) 100 ml STK-MED ONCE .ROUTE ; Start 11/01/16 at 12: 24; Stop 11/01/16 at 12:25; Status DC Midazolam HCl (Versed) 2 mg STK-MED ONCE .ROUTE ; Start 11/01/16 at 12:54; Stop 11/01/16 at 12:55; Status DC Fentanyl Citrate (Fentanyl 2ml Vial) 100 mcg STK-MED ONCE .ROUTE ; Start at 12:54; Stop 11/01/16 at 12:55; Status DC Midazolam HCl (Versed) 2 mg STK-MED ONCE .ROUTE ; Start 11/01/16 at 13:01; Stop 11/01/16 at 13:02; Status DC Fentanyl Citrate (Fentanyl 2ml Vial) 100 mcg STK-MED ONCE .ROUTE ; Start at 13:01; Stop 11/01/16 at 13:02; Status DC Heparin Sodium/ Sodium Chloride 1,000 unit 1X ONCE IART Last administered on 14:35; Start 11/01/16 at 13:15; Stop 11/01/16 at 13:16; Status DC Midazolam HCl (Versed) 2 mg 1X ONCE IV Last administered on 11/01/16t 14:37; Start 11/01/16 at 13:15; Stop 11/01/16 at 13:16; Status DC Fentanyl Citrate (Fentanyl 2ml Vial) 100 mcg 1X ONCE IV Last administered on 14:36; Start 11/01/16 at 13:15; Stop 11/01/16 at 13:16; Status DC Iohexol (Omnipaque 300 Mg/ml) 100 ml 1X ONCE IART Last administered on t 14:35; Start 11/01/16 at 13:15; Stop 11/01/16 at 13:16; Status DC Lidocaine HCl 20 ml 1X ONCE IJ Last administered on 11/01/16 14:35; Start at 13:15; Stop 11/01/16 at 13:16; Status DC Info (Do NOT chart on this entry -- for MONITORING) 1 each PRN DAILY PRN MC SEE COMMENTS; Start 11/01/16 at 13:30; Stop 11/03/16 at 13:29 Tirofiban/Sodium Chloride 250 ml @ As Directed STK-MED ONCE IV ; Start at 13:28; Stop 11/01/16 at 13:29; Status DC Heparin Sodium (Porcine) (Heparin Sodium) 10,000 unit STK-MED ONCE .ROUTE ; Start 11/01/16 at 13:28; Stop 11/01/16 at 13:29; Status DC Heparin Sodium (Porcine) (Heparin Sodium) 8,000 unit 1X ONCE IV Last administered on 11/01/16 14:43; Start 11/01/16 at 13:45; Stop 11/01/16 at 13:47 ; Status DC Tirofiban/Sodium Chloride 250 ml @ 0 mls/hr CONT PRN IV PER PROTOCOL Last administered on 11/01/16 22:58; Start 11/01/16 at 13:45; Stop 11/02/16 at 07:44 ; Status DC Heparin Sodium/ Dextrose 500 ml @ As Directed STK-MED ONCE IV ; Start 11/01/16 at 13:46; Stop 11/01/16 at 13:47; Status DC Clopidogrel Bisulfate (Plavix) 75 mg STK-MED ONCE .ROUTE ; Start 11/01/16 at 13: 47; Stop 11/01/16 at 13:48; Status DC Heparin Sodium/ Dextrose 500 ml @ 16 mls/hr 1X ONCE IV Last administered on 14:15; Start 11/01/16 at 14:15; Stop 11/02/16 at 21:29 Clopidogrel Bisulfate (Plavix) 150 mg 1X ONCE PO Last administered on 14:38; Start 11/01/16 at 14:15; Stop 11/01/16 at 14:16; Status DC Diazepam (Valium) 5 mg PRN Q6HRS PRN PO ANXIETY Last administered on 11/02/16 11:20; Start 11/01/16 at 15:00 Cyclobenzaprine HCl (Flexeril) 10 mg PRN Q6HRS PRN PO MUSCLE SPASMS Last administered on 11/01/16 16:16; Start 11/01/16 at 15:00 Oxycodone/ Acetaminophen (Percocet 5/325) 1 tab PRN Q6HRS PRN PO PAIN Last administered on 11/02/16 06:20; Start 11/01/16 at 15:00 Fentanyl Citrate (Fentanyl 2ml Vial) 50 mcg PRN Q3HRS PRN IV PAIN; Start at 15:00; Stop 11/02/16 at 08:00; Status DC Fentanyl Citrate (Fentanyl 2ml Vial) 25 mcg 1X PRN PRN IV Give prior to sheath removal; Start 11/01/16 at 15:15; Stop 11/02/16 at 15:14; Status DC Midazolam HCl (Versed) 1 mg 1X PRN PRN IV Give prior to sheath removal; Start 11/01/16 at 15:15; Stop 11/02/16 at 15:14; Status DC Sodium Chloride (Normal Saline Flush) 3 ml QSHIFT PRN IV AFTER MEDS AND BLOOD DRAWS; Start 11/01/16 at 15:15 Sodium Chloride 1,000 ml @ 75 mls/hr [id number] IV Last administered on t 22:58; Start 11/01/16 at 15:11 Tirofiban/Sodium Chloride 250 ml @ 0 mls/hr CONT PRN IV PER PROTOCOL; Start at 15:15; Stop 11/02/16 at 06:00; Status DC Clopidogrel Bisulfate (Plavix) 75 mg [id number] PO ; Start 11/02/16 at 08:00; Status Cancel Acetaminophen (Tylenol) 650 mg PRN Q6HRS PRN PO MILD PAIN / TEMP; Start at 15:15 Fentanyl Citrate (Fentanyl 2ml Vial) 50 mcg PRN Q1HR PRN IV MODERATE OR SEVERE PAIN; Start 11/01/16 at 15:15 Nitroglycerin (Nitrostat) 0.4 mg PRN Q5MIN PRN SL CHEST PAIN; Start 11/01/16 at 15:15 Oxycodone/ Acetaminophen (Percocet 5/325) 2 tab PRN Q4HRS PRN PO MODERATE PAIN , SEVERE PAIN Last administered on 11/02/16t 15:15; Start 11/01/16 at 15:15 Enoxaparin Sodium (Lovenox 120mg Syringe) 110 mg Q12HR SQ ; Start 11/03/16 at 09 :00; Stop 11/03/16 at 09:00; Status DC Labetalol HCl (Normodyne) 5 mg PRN Q4HRS PRN IVP HYPERTENSION, SEE COMMENTS; Start 11/01/16 at 18:15 Active Scripts Active Reported Hydrocortisone 10 Mg Tablet 10 Mg PO BID Humalog (Insulin Lispro) 100 Unit/1 Ml Insuln.pen 20 Unit SQ TIDAC Tylophen (Acetaminophen) 500 Mg Capsule 500 Mg PO PRN Q4-6HRS PRN Astaxanthin 4 Mg Capsule 12 Mg PO DAILY Msm (Methylsulfonylmethane) 1,000 Mg Capsule 1,000 Mg PO DAILY Coconut Oil 1,000 Mg Capsule 1,000 Mg PO DAILY D3-2000 (Cholecalciferol (Vitamin D3)) 2,000 Unit Capsule 2,000 Unit PO DAILY Coq-10 (Ubidecarenone) 100 Mg Capsule 100 Mg PO DAILY Super B Complex (Vitamin B Complex & Vit C No.4) 150 Mg Tablet 150 Mg PO DAILY Adult Multivitamin Gummies (Folic Acid/Multivits-Min) 200 Mcg Tab.chew 200 Mcg PO DAILY Fish Oil 1,200 Mg Softgel ([place]-3 Fatty Acids/Fish Oil) 1 Each Capsule 1 Each PO DAILY Aspirin 325 Mg Tablet 1 Tab PO DAILY Clopidogrel (Clopidogrel Bisulfate) 75 Mg Tablet 1 Tab PO DAILY Bupropion Hcl 100 Mg Tablet 300 Mg PO DAILY Atorvastatin Calcium 10 Mg Tablet 1 Tab PO DAILY Lasix (Furosemide) 40 Mg Tablet 1 Tab PO DAILY Potassium Chloride 20 Meq Tablet.er 20 Meq PO BID Metoprolol Tartrate 50 Mg Tablet 1 Tab PO BID Amlodipine Besylate 5 Mg Tablet 5 Mg PO DAILY Levothyroxine Sodium 150 Mcg Tablet 1 Tab PO DAILY Relion Novolin 70-30 Vial (Hum Insulin Nph/Reg Insulin Hm) 100 Unit/1 Ml Vial 40 Unit SQ BID Vitals/I & O Vital Sign - Last 24 Hours 11/01/16 11/01/16 11/01/16 11/01/16 18:07 18:24 18:44 19:45 Temp 97.8 97.8 Pulse 59 59 60 Resp 20 B/P (MAP) 145/73 (97) Pulse Ox 92 92 92 99 O2 Delivery Nasal Cannula Room Air Nasal Cannula Nasal Cannula O2 Flow Rate 3.0 3.0 3.0 4.0 11/01/16 11/01/16 11/01/16 11/02/16 20:00 20:22 23:15 03:50 Temp 97.1 96.8 97.1 96.8 Pulse 60 64 60 Resp 20 18 B/P (MAP) 145/73 132/67 (88) 139/55 (83) Pulse Ox 95 96 O2 Delivery Bi-pap BiPAP/CPAP BiPAP/CPAP 11/02/16 11/02/16 11/02/16 11/02/16 06:20 07:19 07:20 08:15 Temp 97.3 97.3 Pulse 60 Resp 19 B/P (MAP) 125/49 (74) Pulse Ox 96 96 96 O2 Delivery BiPAP/CPAP Nasal Cannula Room Air Nasal Cannula O2 Flow Rate 3.0 2.0 2.0 11/02/16 11/02/16 11/02/16 11/02/16 09:00 09:00 10:46 11:21 Temp 97.2 97.2 Pulse 62 61 61 Resp 16 18 B/P (MAP) 97/58 97/58 129/61 (83) Pulse Ox 97 97 O2 Flow Rate 2.0 11/02/16 11/02/16 11/02/16 14:46 15:15 16:15 Temp 97.7 97.7 Pulse 68 Resp 18 16 18 B/P (MAP) 113/64 (80) Pulse Ox 97 97 97 O2 Delivery Nasal Cannula O2 Flow Rate 2.0 2.0 Intake and Output 11/02/16 11/02/16 11/03/16 15:00 23:00 07:00 Intake Total 360 ml 650 ml Output Total 1000 ml Balance -640 ml 650 ml MANUEL MIKE MD Nov 02, 2016 17:29
[2016-11-02] MEDS: IV 1/2 NORMAL SALINE 1,000 ML IV SCH (17:51)
[2016-11-02 19:50] VITALS: BP 138/82
[2016-11-02] MEDS: ATORVASTATIN CALCIUM 10 MG TABLET. PO SCH (20:46)
[2016-11-02 23:45] VITALS: BP 101/77
[2016-11-03 03:30] VITALS: BP 139/62
[2016-11-03] MEDS: LEVOTHYROXINE 150 MCG TABLET PO SCH (06:20)
[2016-11-03 07:00] VITALS: BP 154/65
--- NOTE | 2016-11-03 08:52 | DISCH ---
DISCHARGE INSTRUCTIONS Condition on Discharge Condition on Discharge: Stable Activity After Discharge Activity Instructions for Disc: No restrictions Diet after Discharge Diet after Discharge: Diabetic No Calorie Level Follow-Up Follow up with: dr antonia Lagunas w NEEMA ZAZUETA MD Nov 03, 2016 08:52
--- NOTE | 2016-11-03 08:54 | PDOC ---
Provider Note Provider Note [id number] NEEMA ZAZUETA MD Nov 03, 2016 08:54
[2016-11-03] MEDS: OMEGA-3 FATTY ACIDS/FISH OIL 1,000 MG CAPSULE. PO SCH (09:00)
[2016-11-03] MEDS: INSULIN DETEMIR 300 UNITS/3 ML INSULN.PEN. SQ SCH (09:00)
[2016-11-03] MEDS: POTASSIUM CHLORIDE 20 MEQ TABLET.ER. PO SCH (09:32)
[2016-11-03] MEDS: buPROPion 100 MG TABLET PO SCH (09:33)
[2016-11-03] MEDS: CLOPIDOGREL BISULFATE 75 MG TABLET PO SCH (09:33)
[2016-11-03] MEDS: ASPIRIN 325 MG TABLET PO SCH (09:33)
[2016-11-03] MEDS: HYDROCORTISONE 10 MG TABLET PO SCH (09:35)
[2016-11-03] MEDS: DOXYCYCLINE HYCLATE 100 MG TABLET PO SCH (09:35)
[2016-11-03] MEDS: METOPROLOL TART IMMED RELEASE 50 MG TABLET. PO SCH (09:35)
[2016-11-03] MEDS: CHOLECALCIFEROL (VITAMIN D3) 1,000 UNIT TABLET PO SCH (09:35)
[2016-11-03] MEDS: MULTIVITAMIN with MINERAL TABLET. PO SCH (09:36)
[2016-11-03] MEDS: amLODIPine BESYLATE 5 MG TABLET PO SCH (09:36)
[2016-11-03] MEDS: FUROSEMIDE 40 MG TABLET. PO SCH (09:36)
[2016-11-03] MEDS: VITAMIN B COMPLEX TABLET. PO SCH (09:36)
[2016-11-03] MEDS: INSULIN ASPART 300 UNITS/3 ML INSULN.PEN SQ SCH ×2 (09:42→12:56)
--- NOTE | 2016-11-03 10:13 | DS ---
DATE OF DISCHARGE: 11/03/2016 HOSPITAL SUMMARY: The patient came in with nonspecific chest pain, fatigue. Cardiac catheterization revealed evidence of coronary disease and Dr. Andujar placed a stent in one artery as a result. All laboratory studies were unremarkable except for mildly elevated troponin up to 0.03. He added Plavix to the aspirin and rest of home meds remain the same. He is comfortable to be followed as an outpatient. FINAL DIAGNOSES: 1. Unstable angina. 2. Coronary artery disease. OPERATIONS AND PROCEDURES: Cardiac catheterization, coronary arteriograms, angioplasty and stent placement. COMPLICATIONS: None. DISPOSITION: Plavix added to the home meds, home meds remain the same including aspirin. Office followup with Dr. Andujar in 1-2 weeks, Dr. Driscoll as needed and [facility] for his Endocrinology tests. NEEMA DRISCOLL MD DR: [place]/nts JOB#: [id number] / [id number]
[2016-11-03 11:00] VITALS: BP 161/65
== END 2016-11-03 15:15 | disposition home or self-care (01) | DRG 247 ==
LOC: ER 10:35 → 2 SOUTH 12:15
PROVIDERS: ADMIT Family Medicine; ATTEND Family Medicine
PROC: 5A09457 Assistance with Respiratory Ventilation, 24-96 Consecutive Hours, Continuous Positive Airway Pressure (ICD-10-PCS; 2016-10-29)
PROC: 027034Z Dilation of Coronary Artery, One Artery with Drug-eluting Intraluminal Device, Percutaneous Approach (ICD-10-PCS; principal; 2016-11-01)
PROC: B2121ZZ Fluoroscopy of Single Coronary Artery Bypass Graft using Low Osmolar Contrast (ICD-10-PCS; 2016-11-01)
PROC: B2111ZZ Fluoroscopy of Multiple Coronary Arteries using Low Osmolar Contrast (ICD-10-PCS; 2016-11-01)
DX: I25.110 Atherosclerotic heart disease of native coronary artery with unstable angina pectoris (principal); I11.0 Hypertensive heart disease with heart failure; I50.9 Heart failure, unspecified; J44.9 Chronic obstructive pulmonary disease, unspecified; E11.9 Type 2 diabetes mellitus without complications; E03.9 Hypothyroidism, unspecified; E78.5 Hyperlipidemia, unspecified; F32.9 Major depressive disorder, single episode, unspecified; F41.9 Anxiety disorder, unspecified; M10.9 Gout, unspecified; M19.90 Unspecified osteoarthritis, unspecified site; I25.2 Old myocardial infarction; Z79.01 Long term (current) use of anticoagulants; Z79.4 Long term (current) use of insulin; Z82.49 Family history of ischemic heart disease and other diseases of the circulatory system; Z95.1 Presence of aortocoronary bypass graft; Z98.61 Coronary angioplasty status; Z90.49 Acquired absence of other specified parts of digestive tract; Z95.0 Presence of cardiac pacemaker
CPT/HCPCS: 36415; 71010; 78452; 80048; 80076; 81001; 82553; 82962; 83690; 83735; 83880; 84443; 84484; 85025; 85027; 85347; 87086; 87641; 92928; 93005; 93017; 93455; 96374; 96375; 96376; A9500; C1769; C1874; C1887; C1892; J1644; J1650; J1815; J2250; J2785; J3010; Q9967; 99285-25; J2001; J3246

== ENCOUNTER 2017-02-03 05:44 | Emergency (ER) | payer OTHER ==
[~2017-02-03] VITALS: Ht 177.8 cm; Wt 115.7 kg
[~2017-02-03 05:44] MED LIST changes: +ACET500C4 PO; +ASPI325T8 PO; +ASTA4CAP PO; +BUPR100T11 PO; +CHOL200044 PO; +COCO1000 PO; +DOXY100T PO; +FOLI200T11 PO; +FURO-68 PO; +HUM100VI4 SQ; +INSU100I11 SQ; -METO50TA2 PO; +METO50TA6 PO; +OMEG1CAP28 PO; +POTA20TA82 PO; +UBID100C26 PO; +[UNRECOGNIZED DRUG - CODE] PO
[2017-02-03 07:19] LABS: BILIRUBIN,URINE NEGATIVE (NEG); GLUCOSE,URINE NEGATIVE (NEG); NITRITE,URINE NEGATIVE (NEG); PH,URINE 5.5; PROTEIN,URINE NEGATIVE (NEG-TRACE); UROBILINOGEN,URINE 0.2 mg/dL (0.2 mg/dL)
[2017-02-03 07:20] LABS: BASO % 0 % (0-3); EOS % 2 % (0-3); HEMATOCRIT 47.5 % (39.0-53.0); HEMOGLOBIN 15.2 g/dL (13.0-17.5); LYMPH % 14 % (24-48); MEAN CORPUSCULAR HEMOGLOBIN 26 pg (25-35); MEAN CORPUSCULAR HGB CONC 32 g/dL (31-37); MEAN CORPUSCULAR VOLUME 80 fL (79-100); MONO % 11 % (0-9); NEUT % 72 % (31-73); PLATELET COUNT 226 x10^3/uL (140-400); RED BLOOD COUNT 5.92 x10^6/uL (4.30-5.70); RED CELL DISTRIBUTION WIDTH 14.8 % (11.5-14.5); WHITE BLOOD COUNT 7.1 x10^3/uL (4.0-11.0)
[2017-02-03 07:24] LABS: CALCIUM 8.4 mg/dL (8.5-10.1); CREATININE 1.2 mg/dL (0.7-1.3); GFR 59.9; POTASSIUM 3.6 mmol/L (3.5-5.1)
--- NOTE | 2017-02-03 07:27 | PHYS DOC ---
Past Medical History Past Medical History: CAD, CHF, Diabetes-Type II, Hypertension, ND, Other Additional Past Medical Histor: PITUITARY TUMOR,NEUROPATHY, BRENDA'S Past Surgical History: Appendectomy, Coronary Bypass Surgery, Pacemaker Additional Past Surgical Histo: LEFT LEG STENTS IN PLACE, LAP BAND, PITUARY TUMOR REMOVED Alcohol Use: None Drug Use: None Adult General Chief Complaint Chief Complaint: HYPOGLYCEMIA HPI HPI This is a pleasant 71-year-old male with a history of adrenal insufficiency presenting to the emergency department today with low blood sugar. He reports taking Levemir 30 units last night at midnight. He woke up this morning tearing off his CPAP machine and found to be low blood sugar by EMS. He was given intramuscular glucagon and glucose tabs by mouth by paramedics and upon arrival his blood sugar was within normal limits. On arrival the patient denies any symptoms. He denies chest pain shortness of breath abdominal pain nausea vomiting diaphoresis fevers chills cough. He denies polyuria or dysuria. He denies having history of renal insufficiency. Review of systems is negative for chest pain shortness of breath nausea vomiting. All other review of systems is negative unless otherwise noted in history of present illness. ED course: 71-year-old male presenting to the emergency department today with hypoglycemia. He last took Levemir at midnight so he was observed until 8 AM. While in the emergency department he received a meal. He was asymptomatic during his observation here. Repeat blood sugar within normal limits. Kidney function is within normal limits. Patient does have a history of adrenal insufficiency but reports taking his hydrocortisone as scheduled and directed by his physician. I recommended he call his social services aide this morning to discuss if he needs changes to this medication. Here in the emergency department he maintains a normal blood pressure and his blood sugar remains within normal limits. He was subsequently discharged home to follow-up with his primary care physician. The patient was then discharged home in stable condition to follow up with their primary care physician over the next 2-3 days. They were to return if their symptoms worsened or if they were concerned for any reason. [id number] discharge instructions and return precautions were given. Patient's questions were answered to their satisfaction. Patient is comfortable plan. Review of Systems Review of Systems SEE ABOVE. Allergies Allergies Allergies Coded Allergies Type Severity Reaction Last Updated Verified Sulfa (Sulfonamide Antibiotics) Allergy Intermediate N/V, RASH 10/29/16 Yes I S O L A T I O N *CONTACT* Allergy Unknown 08/12/15 Yes Physical Exam Physical Exam SEE ABOVE Constitutional: Well developed, well nourished, no acute distress, non-toxic appearance. HENT: Normocephalic, atraumatic, bilateral external ears normal, oropharynx moist, no oral exudates, nose normal. [] Eyes: PERRLA, EOMI, conjunctiva normal, no discharge. [] Neck: Normal range of motion, no tenderness, supple, no stridor. [] Cardiovascular:Heart rate regular rhythm, no murmur Lungs & Thorax: Bilateral breath sounds clear to auscultation [] Abdomen: Bowel sounds normal, soft, no tenderness, no masses, no pulsatile masses. Skin: Warm, dry, no erythema, no rash. [] Back: No tenderness, no CVA tenderness. [] Extremities: No tenderness, no cyanosis, no clubbing, ROM intact, no edema. Neurologic: Alert and oriented X 3, normal motor function, normal sensory function, no focal deficits noted. Psychologic: Affect normal, judgement normal, mood normal. [] Current Patient Data Vital Signs Vital Signs Date Time Temp Pulse Resp B/P (MAP) Pulse Ox O2 Delivery O2 Flow Rate FiO2 02/03/17 08:21 60 20 157/70 (99) 98 Room Air 02/03/17 05:53 97.8 97.8 Lab Values Laboratory Tests Test 02/03/17 06:50 02/03/17 07:10 02/03/17 08:21 Urine Collection Type Unknown Urine Color Yellow Urine Clarity Clear Urine pH 5.5 Urine Specific [place] 1.015 Urine Protein Negative mg/dL (NEG-TRACE) Urine Glucose (UA) Negative mg/dL (NEG) Urine Ketones (Stick) Negative mg/dL (NEG) Urine Blood Negative (NEG) Urine Nitrite Negative (NEG) Urine Bilirubin Negative (NEG) Urine Urobilinogen Dipstick 0.2 mg/dL (0.2 mg/dL) Urine Leukocyte Esterase Negative (NEG) Urine RBC 0 /HPF (0-2) Urine WBC Occ /HPF (0-4) Urine Squamous Epithelial Cells Occ /LPF Urine Bacteria 0 /HPF (0-FEW) Urine Hyaline Casts Few /HPF Urine Mucus Mod /LPF White Blood Count 7.1 x10^3/uL (4.0-11.0) Red Blood Count 5.92 x10^6/uL (4.30-5.70) H Hemoglobin 15.2 g/dL (13.0-17.5) Hematocrit 47.5 % (39.0-53.0) Mean Corpuscular Volume 80 fL (79-100) Mean Corpuscular Hemoglobin 26 pg (25-35) Mean Corpuscular Hemoglobin Concent 32 g/dL (31-37) Red Cell Distribution Width 14.8 % (11.5-14.5) H Platelet Count 226 x10^3/uL (140-400) Neutrophils (%) (Auto) 72 % (31-73) Lymphocytes (%) (Auto) 14 % (24-48) L Monocytes (%) (Auto) 11 % (0-9) H Eosinophils (%) (Auto) 2 % (0-3) Basophils (%) (Auto) 0 % (0-3) Neutrophils # (Auto) 5.2 x10^3uL (1.8-7.7) Lymphocytes # (Auto) 1.0 x10^3/uL (1.0-4.8) Monocytes # (Auto) 0.8 x10^3/uL (0.0-1.1) Eosinophils # (Auto) 0.1 x10^3/uL (0.0-0.7) Basophils # (Auto) 0.0 x10^3/uL (0.0-0.2) Sodium Level 144 mmol/L (136-145) Potassium Level 3.6 mmol/L (3.5-5.1) Chloride Level 103 mmol/L (98-107) Carbon Dioxide Level 31 mmol/L (21-32) Anion Gap 10 (6-14) Blood Urea Nitrogen 20 mg/dL (8-26) Creatinine 1.2 mg/dL (0.7-1.3) Estimated GFR (Cockcroft-Gault) 59.9 Glucose Level 121 mg/dL (70-99) H Calcium Level 8.4 mg/dL (8.5-10.1) L Total Bilirubin 0.3 mg/dL (0.2-1.0) Direct Bilirubin 0.1 mg/dL (0.0-0.2) Aspartate Amino Transferase (AST) 27 U/L (15-37) Alanine Aminotransferase (ALT) 28 U/L (16-63) Alkaline Phosphatase 60 U/L (46-116) Troponin I Quantitative < 0.017 ng/mL (0.000-0.055) Total Protein 7.1 g/dL (6.4-8.2) Albumin 3.6 g/dL (3.4-5.0) Lipase 181 U/L (73-393) Glucose (Fingerstick) 108 mg/dL (70-99) H Laboratory Tests 02/03/17 07:10 Laboratory Tests 02/03/17 07:10 EKG EKG [] Radiology/Procedures Radiology/Procedures [] Course & Med Decision Making Course & Med Decision Making Pertinent Labs and Imaging studies reviewed. (See chart for details) [] Dragon Disclaimer Dragon Disclaimer This electronic medical record was generated, in whole or in part, using a voice recognition dictation system. Departure Departure Impression: Primary Impression: Hypoglycemia Disposition: HOME, SELF-CARE Condition: STABLE Referrals: NEEMA ZAZUETA MD (PCP) Patient Instructions: Hypoglycemia (Low Blood Sugar) Additional Instructions: Thank you for allowing us to participate in your care today. Call your social services aide this morning to discuss possible changes in you hydrocortisone. Followup with your primary care physician in 3 days if your symptoms do not improve. Call your Primary Doctor tomorrow and inform them of your visit today. If you do not have a primary care provider you can ask for a list of our primary care providers. Return to the emergency department you have any new or concerning findings. This should be evaluated by the primary care physician and any necessary consulting services for continued management within a few days after discharge. Return to emergency room if you have any new or concerning symptoms including but not limited to fever, chills, nausea, vomiting, intractable pain, any new rashes, chest pain, shortness of air, uncontrolled bleeding, difficulty breathing, and/or vision loss. LUCIE PARKS MD Feb 03, 2017 07:26
[2017-02-03 07:30] LABS: ALBUMIN 3.6 g/dL (3.4-5.0); DIRECT BILIRUBIN 0.1 mg/dL (0.0-0.2); TOTAL BILIRUBIN 0.3 mg/dL (0.2-1.0); TOTAL PROTEIN 7.1 g/dL (6.4-8.2)
[2017-02-03 07:36] LABS: SQUAMOUS EPITHELIAL CELL,UR OCC /LPF
[2017-02-03 07:37] LABS: WBC,URINE OCC /HPF (0-4)
[2017-02-03 07:38] LABS: BACTERIA,URINE 0 /HPF (0-FEW); RBC,URINE 0 /HPF (0-2)
--- NOTE | 2017-02-03 08:13 | EKG ---
[facility] [address] [place] [address] Test Date: 2017-02-03 Test Time: 07:37:48 Pat Name: LINDA DAVID Department: Room: Gender: M Cooker Sulfite: : 1945 Requested By: LUCIE PARKS Order Number: [id number] Reading MD: Measurements Intervals [place] Rate: 63 P: 0 VT: 188 QRS: -12 QRSD: 114 T: 131 QT: 452 QTc: 465 Interpretive Statements SINUS RHYTHM VENTRICULAR PREMATURE COMPLEX(ES) LEFTWARD AXIS R-S TRANSITION ZONE IN V LEADS DISPLACED TO THE LEFT LOW LIMB LEAD VOLTAGE T ABNORMALITY IN HIGH LATERAL LEADS ABNORMAL ECG No previous ECG available for comparison
[2017-02-03 08:21] VITALS: BP 157/70
== END 2017-02-03 08:54 | disposition home or self-care (01) ==
LOC: ER 05:44
DX: E11.649 Type 2 diabetes mellitus with hypoglycemia without coma (principal); I11.0 Hypertensive heart disease with heart failure; I50.9 Heart failure, unspecified; I25.10 Atherosclerotic heart disease of native coronary artery without angina pectoris; Z95.0 Presence of cardiac pacemaker; E11.40 Type 2 diabetes mellitus with diabetic neuropathy, unspecified; Z95.1 Presence of aortocoronary bypass graft; Z90.49 Acquired absence of other specified parts of digestive tract; Z79.4 Long term (current) use of insulin; I25.2 Old myocardial infarction; Z95.5 Presence of coronary angioplasty implant and graft; Z88.2 Allergy status to sulfonamides; Z91.041 Radiographic dye allergy status
CPT/HCPCS: 36415; 80048; 80076; 81001; 82962; 83690; 84484; 85025; 93005; 99285-25

== ENCOUNTER → 2017-05-10 | Outpatient (CLI) | payer OTHER ==
[2017-05-10] MEDS: IOHEXOL 300 MG/ML 100ML VIAL. IV (13:30)
[2017-05-10 14:34] LABS: ISTAT CREATININE 1.1 mg/dL (0.7-1.3)
== END | disposition home or self-care (01) ==
LOC: KCIC CT 13:03
DX: D35.2 Benign neoplasm of pituitary gland (principal); G31.89 Other specified degenerative diseases of nervous system
CPT/HCPCS: 70470; 82565; Q9967

== ENCOUNTER 2018-01-07 08:06 | Emergency (ER) | payer OTHER ==
[~2018-01-07] VITALS: Ht 170.2 cm; Wt 117.9 kg
[~2018-01-07 08:06] MED LIST changes: -AMLO5TAB2 PO; +AMLO5TAB7 PO; -CITA20TA5 PO; +CITA20TA6 PO; +GABA-585 PO; +INSU100V13 SQ; +LIRA0.6P2 SQ; +METF500T16 PO; -METF500T4 PO
[2018-01-07 08:39] LABS: BASO % 1 % (0-3); EOS # 0.1 x10^3/uL (0.0-0.7); EOS % 1 % (0-3); HEMATOCRIT 48.5 % (39.0-53.0); HEMOGLOBIN 16.5 g/dL (13.0-17.5); LYMPH # 1.5 x10^3/uL (1.0-4.8); LYMPH % 19 % (24-48); MEAN CORPUSCULAR HEMOGLOBIN 29 pg (25-35); MEAN CORPUSCULAR HGB CONC 34 g/dL (31-37); MEAN CORPUSCULAR VOLUME 86 fL (79-100); MONO % 12 % (0-9); NEUT # 5.3 x10^3uL (1.8-7.7); NEUT % 67 % (31-73); PLATELET COUNT 223 x10^3/uL (140-400); RED BLOOD COUNT 5.68 x10^6/uL (4.30-5.70); WHITE BLOOD COUNT 7.8 x10^3/uL (4.0-11.0)
[2018-01-07 08:58] LABS: ALBUMIN 3.4 g/dL (3.4-5.0); ALBUMIN/GLOBULIN RATIO 0.9 (1.0-1.7); CALCIUM 9.1 mg/dL (8.5-10.1); CREATININE 1.2 mg/dL (0.7-1.3); GFR 59.7; POTASSIUM 3.8 mmol/L (3.5-5.1); TOTAL BILIRUBIN 0.3 mg/dL (0.2-1.0); TOTAL PROTEIN 7.1 g/dL (6.4-8.2)
[2018-01-07 09:47] LABS: % BANDS 3 % (0-9); % EOS 2 % (0-5); % LYMPHS 22 % (24-48); % MONOS 8 % (0-10); % SEGS 65 % (35-66); PLT ESTIMATE ADEQUATE (ADEQUATE)
--- NOTE | 2018-01-07 11:15 | PHYS DOC ---
Past Medical History Past Medical History: CAD, CHF, Diabetes-Type II, Hypertension, GA, Other Additional Past Medical Histor: PITUITARY TUMOR,NEUROPATHY, BRENDA'S Past Surgical History: Appendectomy, Coronary Bypass Surgery, Pacemaker Additional Past Surgical Histo: LEFT LEG STENTS IN PLACE, LAP BAND, PITUARY TUMOR REMOVED Alcohol Use: None Drug Use: None Adult General Chief Complaint Chief Complaint: HYPOGLYCEMIA HPI HPI Patient is a 72 year old [f__sex] who presents with [] Review of Systems Review of Systems Constitutional: Denies fever or chills [] Eyes: Denies change in visual acuity, redness, or eye pain [] HENT: Denies nasal congestion or sore throat [] Respiratory: Denies cough or shortness of breath [] Cardiovascular: No additional information not addressed in HPI [] GI: Denies abdominal pain, nausea, vomiting, bloody stools or diarrhea [] : Denies dysuria or hematuria [] Musculoskeletal: Denies back pain or joint pain [] Integument: Denies rash or skin lesions [] Neurologic: Denies headache, focal weakness or sensory changes [] Endocrine: Denies polyuria or polydipsia [] All other systems were reviewed and found to be within normal limits, except as documented in this note. Allergies Allergies Allergies Coded Allergies Type Severity Reaction Last Updated Verified Sulfa (Sulfonamide Antibiotics) Allergy Intermediate N/V, RASH 10/29/16 Yes I S O L A T I O N *CONTACT* Allergy Unknown 08/12/15 Yes Physical Exam Physical Exam Constitutional: Well developed, well nourished, no acute distress, non-toxic appearance. [] HENT: Normocephalic, atraumatic, bilateral external ears normal, oropharynx moist, no oral exudates, nose normal. [] Eyes: PERRLA, EOMI, conjunctiva normal, no discharge. [] Neck: Normal range of motion, no tenderness, supple, no stridor. [] Cardiovascular:Heart rate regular rhythm, no murmur [] Lungs & Thorax: Bilateral breath sounds clear to auscultation [] Abdomen: Bowel sounds normal, soft, no tenderness, no masses, no pulsatile masses. [] Skin: Warm, dry, no erythema, no rash. [] Back: No tenderness, no CVA tenderness. [] Extremities: No tenderness, no cyanosis, no clubbing, ROM intact, no edema. [] Neurologic: Alert and oriented X 3, normal motor function, normal sensory function, no focal deficits noted. [] Psychologic: Affect normal, judgement normal, mood normal. [] Current Patient Data Vital Signs Vital Signs Date Time Temp Pulse Resp B/P (MAP) Pulse Ox O2 Delivery O2 Flow Rate FiO2 01/07/18 08:10 97.8 60 16 175/78 (110) 98 Room Air 97.8 Lab Values Laboratory Tests Test 01/07/18 08:30 01/07/18 09:08 White Blood Count 7.8 x10^3/uL (4.0-11.0) Red Blood Count 5.68 x10^6/uL (4.30-5.70) Hemoglobin 16.5 g/dL (13.0-17.5) Hematocrit 48.5 % (39.0-53.0) Mean Corpuscular Volume 86 fL (79-100) Mean Corpuscular Hemoglobin 29 pg (25-35) Mean Corpuscular Hemoglobin Concent 34 g/dL (31-37) Red Cell Distribution Width 14.0 % (11.5-14.5) Platelet Count 223 x10^3/uL (140-400) Neutrophils (%) (Auto) 67 % (31-73) Lymphocytes (%) (Auto) 19 % (24-48) L Monocytes (%) (Auto) 12 % (0-9) H Eosinophils (%) (Auto) 1 % (0-3) Basophils (%) (Auto) 1 % (0-3) Neutrophils # (Auto) 5.3 x10^3uL (1.8-7.7) Lymphocytes # (Auto) 1.5 x10^3/uL (1.0-4.8) Monocytes # (Auto) 1.0 x10^3/uL (0.0-1.1) Eosinophils # (Auto) 0.1 x10^3/uL (0.0-0.7) Basophils # (Auto) 0.0 x10^3/uL (0.0-0.2) Segmented Neutrophils % 65 % (35-66) Band Neutrophils % 3 % (0-9) Lymphocytes % 22 % (24-48) L Monocytes % 8 % (0-10) Eosinophils % 2 % (0-5) Platelet Estimate Adequate (ADEQUATE) Sodium Level 143 mmol/L (136-145) Potassium Level 3.8 mmol/L (3.5-5.1) Chloride Level 103 mmol/L (98-107) Carbon Dioxide Level 33 mmol/L (21-32) H Anion Gap 7 (6-14) Blood Urea Nitrogen 22 mg/dL (8-26) Creatinine 1.2 mg/dL (0.7-1.3) Estimated GFR (Cockcroft-Gault) 59.7 BUN/Creatinine Ratio 18 (6-20) Glucose Level 44 mg/dL (70-99) L Calcium Level 9.1 mg/dL (8.5-10.1) Total Bilirubin 0.3 mg/dL (0.2-1.0) Aspartate Amino Transferase (AST) 30 U/L (15-37) Alanine Aminotransferase (ALT) 26 U/L (16-63) Alkaline Phosphatase 42 U/L (46-116) L Total Protein 7.1 g/dL (6.4-8.2) Albumin 3.4 g/dL (3.4-5.0) Albumin/Globulin Ratio 0.9 (1.0-1.7) L Glucose (Fingerstick) 102 mg/dL (70-99) H Laboratory Tests 01/07/18 08:30 Laboratory Tests 01/07/18 08:30 EKG EKG [] Radiology/Procedures Radiology/Procedures [] Course & Med Decision Making Course & Med Decision Making Pertinent Labs and Imaging studies reviewed. (See chart for details) [] Dragon Disclaimer Dragon Disclaimer This electronic medical record was generated, in whole or in part, using a voice recognition dictation system. Departure Departure Impression: Primary Impression: Hypoglycemia Disposition: 01 HOME, SELF-CARE Condition: STABLE Referrals: NEEMA ZAZUETA MD (PCP) Patient Instructions: Hypoglycemia (Low Blood Sugar) Additional Instructions: Continue your at-home medications as directed. Follow-up with your primary care provider for further evaluation of your new insulin. If worsening return to the emergency department. TRAMAINE BURNS APRN Jan 07, 2018 11:14
[2018-01-07 11:30] VITALS: BP 132/63
== END 2018-01-07 11:45 | disposition home or self-care (01) ==
LOC: ER 08:06
DX: E11.649 Type 2 diabetes mellitus with hypoglycemia without coma (principal); E11.40 Type 2 diabetes mellitus with diabetic neuropathy, unspecified; I10 Essential (primary) hypertension; I25.10 Atherosclerotic heart disease of native coronary artery without angina pectoris; I25.2 Old myocardial infarction; Z95.1 Presence of aortocoronary bypass graft; Z90.89 Acquired absence of other organs; Z95.0 Presence of cardiac pacemaker; Z88.2 Allergy status to sulfonamides; Z91.041 Radiographic dye allergy status
CPT/HCPCS: 36415; 80053; 82962; 85007; 85025; 99283

== ENCOUNTER → 2018-02-10 | Outpatient (CLI) | payer OTHER ==
[~2018-02-10] MED LIST changes: +CONTRAST GIVEN. MC PRN; -GABA-586 PO; +GABA300C18 PO; +IOHEXOL 300 MG/ML 100ML VIAL. IV ONE
--- NOTE | 2018-02-10 16:13 | RAD ---
RS Compliance Statement: One or more of the following individualized dose reduction techniques were utilized for this examination: 1. Automated exposure control 2. Adjustment of the mA and/or kV according to patient size 3. Use of iterative reconstruction technique CT head with and without contrast 02/10/2018 8:36 AM INDICATION: History of pituitary tumor COMPARISON: CT head May 10, 2017 TECHNIQUE: Multiple axial CT images of the head were obtained from skull base through the vertex without without intravenous contrast. 70 mL Omnipaque 300 was administered intravenously. FINDINGS: Head: There is similar expansion the sella turcica measuring approximately 2.0 x 1.7 cm. No definite involvement of the cavernous sinuses. There is persistent opacification of left sphenoid sinus. Ventricles, sulci and basal cisterns are within normal limits. There is no hydrocephalus. Palmer-white matter differentiation is normal. There is no acute intracranial hemorrhage. There is no mass effect or midline shift. Posterior fossa is normal in appearance. Visualized portions of the orbits are normal. Paranasal sinuses are well aerated. Mastoid air cells are well aerated. Scalp and calvaria are normal. IMPRESSION: There is persistent expansion of the sella turcica with opacification of the left sphenoid sinus. Findings are not significantly changed dating back to July 18, 2017. No acute intracranial hemorrhage. Electronically signed by: Albertina Hodge MD (02/10/2018 2:45 PM) [id number]
== END | disposition home or self-care (01) ==
LOC: CT 08:13
PROVIDERS: ATTEND Radiology Radiation Oncology
DX: D35.2 Benign neoplasm of pituitary gland (principal); Z92.3 Personal history of irradiation
CPT/HCPCS: 70470; Q9967

== ENCOUNTER 2019-05-23 14:54 | Emergency (ER) | payer OTHER ==
[~2019-05-23 14:54] MED LIST changes: +AMLO5TAB10 PO; -AMLO5TAB7 PO; -CONTRAST GIVEN. MC PRN; -HYDR-3074 PO; +HYDR10TA66 PO; -IOHEXOL 300 MG/ML 100ML VIAL. IV ONE; -POTA20TA82 PO
== END 2019-05-23 15:13 | disposition left against medical advice (07) ==
LOC: ER 14:54
DX: S89.80XA Other specified injuries of unspecified lower leg, initial encounter (principal); X58.XXXA Exposure to other specified factors, initial encounter; Y93.89 Activity, other specified; Y92.89 Other specified places as the place of occurrence of the external cause; Y99.8 Other external cause status; Z53.21 Procedure and treatment not carried out due to patient leaving prior to being seen by health care provider